=== PATIENT | female | born 1940 | race Caucasian/White ===

== ENCOUNTER 2018-12-02 21:13 | Inpatient (IN) | payer MEDICARE, MEDICAID ==
[~2018-12-02] VITALS: Ht 147.3 cm; Wt 62.0 kg
[~2018-12-02 21:13] MED LIST: LISI10TA4 PO; OMEP-84 PO; SIMV20TA5 PO; VALA500T33 PO
[2018-12-02] MEDS ORDERED: acetaminophen 325mg tablet PO ONE (21:25)
--- NOTE | 2018-12-02 21:30 | NUR ---
Patient complains of nausea and vomiting earlier. Feels weaknes and sleepy now. Being treated for UTI prior to coming to ED. Patients at bedside.
[2018-12-02] MEDS ORDERED: CefTRIAXone 2gm/D5W 50ml 50 ML IV ONE (21:45)
[2018-12-02] MEDS ORDERED: normal saline 1000ML IV soln IV ONE (21:45)
--- NOTE | 2018-12-02 22:00 | NUR ---
Patient is alert and oriented, w/d, fair color. Patient is sleeping. at bedside.
[2018-12-02 23:00] LABS: CLARITY,URINE CLEAR (Clear); COLOR,URINE YELLOW (Yellow); GLUCOSE, URINE NEGATIVE (Neg); KETONES,URINE NEGATIVE (Neg); LEUKOCYTE ESTERASE ,URINE NEGATIVE (Neg); NITRITES, URINE NEGATIVE (Neg); OCCULT BLOOD,URINE NEGATIVE (Neg); PROTEIN,URINE NEGATIVE (Neg); UROBILINOGEN,URINE 0.2 E.U/dL (0.2-1.0)
[2018-12-02 23:13] LABS: BASOPHILS % (AUTO) 0.2 % (0-1); EOSINOPHILS # (AUTO) 0.1 X10'3 (0-0.9); EOSINOPHILS % (AUTO) 0.3 % (0-6); HEMATOCRIT 41.1 % (35.0-45.0); HEMOGLOBIN 13.5 g/dl (12.0-16.0); LYMPHOCYTES # (AUTO) 0.3 X10'3 (1.1-4.8); LYMPHOCYTES % (AUTO) 1.2 % (21-51); MEAN CORPUSCULAR HEMOGLOBIN 30.3 PG (27.0-31.0); MEAN CORPUSCULAR HGB CONC 32.7 g/dL (33.0-36.5); MEAN CORPUSCULAR VOLUME 92.7 FL (78-98); MONOCYTES % (AUTO) 3.8 % (2-12); NEUTROPHILS # (AUTO) 25.4 X10'3 (1.8-7.7); NEUTROPHILS % (AUTO) 94.5 % (42-75); PLATELET COUNT 296 X10'3 (140-440); RED BLOOD COUNT 4.44 X10'6 (4.20-5.60); RED CELL DISTRIBUTION WIDTH 14.5 % (11.5-14.5)
[2018-12-02 23:15] LABS: ALANINE AMINOTRANSFERASE 31 U/L (12-78); ALBUMIN 3.7 G/DL (3.4-5.0); ALBUMIN/GLOBULIN RATIO 1.1 (1.1-1.5); ALKALINE PHOSPHATASE 85 IU/L (46-116); ANION GAP 9 (8-16); ASPARTATE AMINO TRANSFERASE 22 U/L (10-37); BILIRUBIN,TOTAL 0.5 MG/DL (0.1-1.0); BLOOD UREA NITROGEN 16 MG/DL (7-18); BUN/CREATININE RATIO 16.8 (6.6-38.0); CALCIUM 9.5 MG/DL (8.5-10.1); CHLORIDE 105 MMOL/L (99-107); CREATININE 0.95 MG/DL (0.40-0.90); GLUCOSE 155 MG/DL (70-104); POTASSIUM 3.3 MMOL/L (3.5-5.1); SODIUM 141 MMOL/L (135-145); TOTAL CARBON DIOXIDE 26.7 MMOL/L (24-32); TOTAL PROTEIN 7.1 G/DL (6.4-8.2); eGFR 57 ML/MIN
[2018-12-02 23:17] LABS: WHITE BLOOD COUNT 26.9 X10'3 (4.5-11.0)
[2018-12-02 23:19] LABS: UA COLLECTION TYPE VOIDED
[2018-12-02 23:24] LABS: MAGNESIUM 1.5 MG/DL (1.5-2.4); TROPONIN I < 0.04 NG/ML (0.0-0.05)
[2018-12-02 23:55] LABS: PLATELET ESTIMATE NORMAL; TOTAL CELLS COUNTED 100; TOXIC GRANULATION 1+; TOXIC VACUOLATION 3+
[2018-12-03] MEDS ORDERED: ATOR40TA72 PO (00:29)
[2018-12-03] MEDS ORDERED: NITR100C11 PO (00:29)
[2018-12-03] MEDS ORDERED: TRAM50TA2 PO (00:29)
[2018-12-03] MEDS ORDERED: ASPI-1130 PO (00:29)
[2018-12-03] MEDS ORDERED: CLOT30CR TOP (00:29)
[2018-12-03] MEDS ORDERED: traMADol 50MG tablet PO PRN (01:15)
--- NOTE | 2018-12-03 01:21 | NUR ---
Patient is resting. IV antibiotics are done. Awaiting admit.
[2018-12-03] MEDS ORDERED: potassium Cl 20 mEq SR tablet PO PRN (01:25)
[2018-12-03] MEDS ORDERED: ondansetron/PF 4mg/2ml inj IV PRN (01:25)
[2018-12-03] MEDS ORDERED: acetaminophen 325mg tablet PO PRN (01:25)
[2018-12-03] MEDS ORDERED: magnesium 2GM in 50ml NS 50 ML IV PRN (01:25)
[2018-12-03] MEDS ORDERED: magnesium Cl slow-release 64mg tablet PO PRN (01:25)
[2018-12-03] MEDS ORDERED: potassium CL 10mEq/100ml bag 100 ML IV PRN ×2 (01:25)
[2018-12-03] MEDS ORDERED: mag hydrox/Alum hydrox/simeth 30ml oral suspension PO PRN (01:25)
[2018-12-03] MEDS ORDERED: docusate sod 100mg capsule PO PRN (01:25)
[2018-12-03] MEDS ORDERED: magnesium 4gm in 100ml NS 100 ML IV PRN (01:25)
--- NOTE | 2018-12-03 02:19 | NUR ---
Patient is up to bedside commode to voide. Assistance provided by female nurses. The report has been given to GRACIE Roy on surgical floor.
--- NOTE | 2018-12-03 02:39 | NUR ---
Patient transported to surgical floor.
[2018-12-03 02:40] VITALS: BP 120/65
--- NOTE | 2018-12-03 03:00 | NUR ---
0215 I received report from Roberth RN had the opportunity to go over the plan of care and ask questions. Patient arrived via gurney with tech and at her side. She was not in any distress.
[2018-12-03] MEDS: normal saline 1000ml 1,000 ML IV SCH ×3 (03:05→15:05)
[2018-12-03 04:33] LABS: BASOPHILS % (AUTO) 0.1 % (0-1); EOSINOPHILS # (AUTO) 0.3 X10'3 (0-0.9); EOSINOPHILS % (AUTO) 1.1 % (0-6); HEMATOCRIT 41.1 % (35.0-45.0); HEMOGLOBIN 13.2 g/dl (12.0-16.0); LYMPHOCYTES # (AUTO) 0.6 X10'3 (1.1-4.8); LYMPHOCYTES % (AUTO) 2.4 % (21-51); MEAN CORPUSCULAR VOLUME 93.8 FL (78-98); MEAN PLATELET VOLUME 9.9 FL (7.4-10.4); MONOCYTES % (AUTO) 4.1 % (2-12); NEUTROPHILS # (AUTO) 22.5 X10'3 (1.8-7.7); NEUTROPHILS % (AUTO) 92.3 % (42-75); PLATELET COUNT 301 X10'3 (140-440); RED BLOOD COUNT 4.38 X10'6 (4.20-5.60); RED CELL DISTRIBUTION WIDTH 14.7 % (11.5-14.5); WHITE BLOOD COUNT 24.4 X10'3 (4.5-11.0)
--- NOTE | 2018-12-03 06:41 | NUR ---
Patient in room [facility] 349. I have received report from GRACIE Roy and had the opportunity to ask questions and assume patient care.
--- NOTE | 2018-12-03 06:42 | NUR ---
Problems reprioritized. Patient report given, questions answered & plan of care reviewed with Liset BOWMAN.
[2018-12-03 07:00] VITALS: BP 121/50
[2018-12-03] MEDS: K and/or MAG REPLACEMENT MC SCH (08:00)
[2018-12-03] MEDS: valacyclovir 500mg tablet PO SCH (08:00)
[2018-12-03] MEDS: metroNIDAZOLE-Flagyl 500mg/NS 100 ML IV SCH ×3 (08:15→23:44)
[2018-12-03] MEDS ORDERED: iohexol 300mg/ml 100ml inj. ONE (08:18)
[2018-12-03] MEDS: enoxaparin 40mg/0.4ml syringe SUBCUT SCH (08:21)
--- NOTE | 2018-12-03 08:35 | NUR ---
Patient to CT via wheelchair with x1 staff. Patient alert, oriented and in no apparent distress at this time
--- NOTE | 2018-12-03 09:03 | NUR ---
Patient returned from CT scan via wheelchair. Patient in no apparent distress. bedside. BLL, call light in reach.
[2018-12-03] MEDS: aspirin 81mg tablet.DR PO SCH (09:30)
[2018-12-03] MEDS: atorvastatin 20mg tablet PO SCH (09:30)
[2018-12-03] MEDS: pantoprazole 40mg Tablet.DR PO SCH (09:30)
[2018-12-03] MEDS: ciprofloxacin/D5W 200mg/100mL 100 ML IV SCH ×2 (10:40→19:52)
[2018-12-03 11:00] VITALS: BP 123/57
[2018-12-03 14:21] LABS: ALANINE AMINOTRANSFERASE 23 U/L (12-78); ALBUMIN 3.2 G/DL (3.4-5.0); ALKALINE PHOSPHATASE 67 IU/L (46-116); ANION GAP 8 (8-16); ASPARTATE AMINO TRANSFERASE 16 U/L (10-37); BILIRUBIN,TOTAL 0.4 MG/DL (0.1-1.0); BLOOD UREA NITROGEN 11 MG/DL (7-18); BUN/CREATININE RATIO 14.1 (6.6-38.0); CALCIUM 9.2 MG/DL (8.5-10.1); CHLORIDE 108 MMOL/L (99-107); CREATININE 0.78 MG/DL (0.40-0.90); GLUCOSE 84 MG/DL (70-104); POTASSIUM 3.3 MMOL/L (3.5-5.1); SODIUM 144 MMOL/L (135-145); TOTAL CARBON DIOXIDE 28.2 MMOL/L (24-32); TOTAL PROTEIN 6.4 G/DL (6.4-8.2); eGFR 71 ML/MIN
[2018-12-03] MEDS: potassium Cl 20 mEq SR tablet PO PRN ×2 (15:06→19:21)
[2018-12-03 18:00] VITALS: BP 131/66
--- NOTE | 2018-12-03 18:30 | NUR ---
Problems reprioritized. Patient report given, questions answered & plan of care reviewed with GRACIE Roy.
--- NOTE | 2018-12-03 18:48 | NUR ---
Patient in room [facility] 349. I have received report from Liset BOWMAN and had the opportunity to ask questions and assume patient care.
[2018-12-03] MEDS: lactobacillus rhamnosus 10,000 MMU CELLS/CAPSULE PO SCH (19:22)
[2018-12-03] MEDS ORDERED: CefTRIAXone/D5W-Rocephin 1gm 50 ML IV SCH (21:00)
[2018-12-04] VITALS: BP 145/71
[2018-12-04] MEDS: potassium Cl 20 mEq SR tablet PO PRN (00:08)
[2018-12-04] MEDS: normal saline 1000ml 1,000 ML IV SCH (03:46)
--- NOTE | 2018-12-04 06:03 | NUR ---
Problems reprioritized. Patient report given, questions answered & plan of care reviewed with GRACIE Hutchins.
--- NOTE | 2018-12-04 06:05 | NUR ---
Patient in room [facility] 349. I have received report from GRACIE Roy and had the opportunity to ask questions and assume patient care.
[2018-12-04 06:27] LABS: BASOPHILS % (AUTO) 0.3 % (0-1); EOSINOPHILS # (AUTO) 0.5 X10'3 (0-0.9); EOSINOPHILS % (AUTO) 4.6 % (0-6); HEMATOCRIT 36.9 % (35.0-45.0); LYMPHOCYTES # (AUTO) 0.9 X10'3 (1.1-4.8); LYMPHOCYTES % (AUTO) 7.9 % (21-51); MEAN CORPUSCULAR HEMOGLOBIN 30.7 PG (27.0-31.0); MEAN CORPUSCULAR HGB CONC 32.5 g/dL (33.0-36.5); MEAN CORPUSCULAR VOLUME 94.4 FL (78-98); MEAN PLATELET VOLUME 9.6 FL (7.4-10.4); MONOCYTES # (AUTO) 0.8 X10'3 (0-0.9); MONOCYTES % (AUTO) 7.1 % (2-12); NEUTROPHILS # (AUTO) 8.7 X10'3 (1.8-7.7); NEUTROPHILS % (AUTO) 80.1 % (42-75); PLATELET COUNT 254 X10'3 (140-440); RED BLOOD COUNT 3.91 X10'6 (4.20-5.60); RED CELL DISTRIBUTION WIDTH 14.9 % (11.5-14.5); WHITE BLOOD COUNT 10.8 X10'3 (4.5-11.0)
[2018-12-04 07:00] VITALS: BP 123/48
[2018-12-04 07:03] LABS: ALANINE AMINOTRANSFERASE 21 U/L (12-78); ALBUMIN 2.8 G/DL (3.4-5.0); ALKALINE PHOSPHATASE 55 IU/L (46-116); ASPARTATE AMINO TRANSFERASE 16 U/L (10-37); BILIRUBIN,TOTAL 0.4 MG/DL (0.1-1.0); BLOOD UREA NITROGEN 9 MG/DL (7-18); CALCIUM 8.5 MG/DL (8.5-10.1); CHLORIDE 113 MMOL/L (99-107); CHOLESTEROL 91 MG/DL (0-200); CREATININE 0.75 MG/DL (0.40-0.90); GLUCOSE 88 MG/DL (70-104); MAGNESIUM 1.6 MG/DL (1.5-2.4); TOTAL CARBON DIOXIDE 22.2 MMOL/L (24-32); TOTAL PROTEIN 5.7 G/DL (6.4-8.2); eGFR 75 ML/MIN
[2018-12-04 07:04] LABS: CHOL/HDL RATIO 1.9 (0.00-4.99); HDL CHOLESTEROL 48 MG/DL (35-60); LDL CHOLESTEROL 37 MG/DL (50-100); TRIGLYCERIDES 62 MG/DL (20-135)
[2018-12-04 07:17] LABS: ANION GAP 10 (8-16); SODIUM 145 MMOL/L (135-145)
[2018-12-04] MEDS: K and/or MAG REPLACEMENT MC SCH (07:47)
[2018-12-04] MEDS: aspirin 81mg tablet.DR PO SCH (07:50)
[2018-12-04] MEDS: lactobacillus rhamnosus 10,000 MMU CELLS/CAPSULE PO SCH ×2 (07:50→19:37)
[2018-12-04] MEDS: metroNIDAZOLE-Flagyl 500mg/NS 100 ML IV SCH ×2 (07:50→16:40)
[2018-12-04] MEDS: atorvastatin 20mg tablet PO SCH (07:51)
[2018-12-04] MEDS: pantoprazole 40mg Tablet.DR PO SCH (07:51)
[2018-12-04] MEDS: valacyclovir 500mg tablet PO SCH (07:52)
[2018-12-04] MEDS: enoxaparin 40mg/0.4ml syringe SUBCUT SCH (07:52)
[2018-12-04] MEDS: ciprofloxacin/D5W 200mg/100mL 100 ML IV SCH ×2 (09:12→19:37)
[2018-12-04 11:00] VITALS: BP 161/70
[2018-12-04] MEDS ORDERED: benzonatate 100mg capsule PO PRN (12:00)
[2018-12-04 18:00] VITALS: BP 145/77
--- NOTE | 2018-12-04 18:17 | NUR ---
Problems reprioritized. Patient report given, questions answered & plan of care reviewed with GRACIE Roy.
--- NOTE | 2018-12-04 18:20 | NUR ---
Patient in room [facility] 349. I have received report from GRACIE Hutchins and had the opportunity to ask questions and assume patient care.
[2018-12-05] VITALS: BP 163/81
[2018-12-05] MEDS: metroNIDAZOLE-Flagyl 500mg/NS 100 ML IV SCH
--- NOTE | 2018-12-05 01:31 | NUR ---
Patients IV went bad while 0000 flagyl was infusing. I tried once and another RN tried twice with no results. Patient is refusing for us to try anymore for us to place an IV. Dr Dumont notified. I was told to hold put a hold on eMAR on the flagyl. Will notify day tomorrow. Plan is for patient to go home later today.
[2018-12-05 06:19] LABS: BASOPHILS % (AUTO) 0.4 % (0-1); EOSINOPHILS # (AUTO) 0.3 X10'3 (0-0.9); EOSINOPHILS % (AUTO) 3.4 % (0-6); HEMATOCRIT 38.1 % (35.0-45.0); HEMOGLOBIN 12.5 g/dl (12.0-16.0); LYMPHOCYTES # (AUTO) 1.1 X10'3 (1.1-4.8); LYMPHOCYTES % (AUTO) 11.7 % (21-51); MEAN CORPUSCULAR HEMOGLOBIN 30.7 PG (27.0-31.0); MEAN CORPUSCULAR HGB CONC 32.7 g/dL (33.0-36.5); MEAN CORPUSCULAR VOLUME 93.9 FL (78-98); MEAN PLATELET VOLUME 9.7 FL (7.4-10.4); MONOCYTES # (AUTO) 0.7 X10'3 (0-0.9); NEUTROPHILS # (AUTO) 7.2 X10'3 (1.8-7.7); NEUTROPHILS % (AUTO) 76.5 % (42-75); PLATELET COUNT 282 X10'3 (140-440); RED BLOOD COUNT 4.06 X10'6 (4.20-5.60); RED CELL DISTRIBUTION WIDTH 14.8 % (11.5-14.5); WHITE BLOOD COUNT 9.4 X10'3 (4.5-11.0)
[2018-12-05 06:40] LABS: ALANINE AMINOTRANSFERASE 24 U/L (12-78); ALBUMIN 3.1 G/DL (3.4-5.0); ALKALINE PHOSPHATASE 60 IU/L (46-116); ANION GAP 11 (8-16); ASPARTATE AMINO TRANSFERASE 13 U/L (10-37); BILIRUBIN,TOTAL 0.3 MG/DL (0.1-1.0); BLOOD UREA NITROGEN 8 MG/DL (7-18); CALCIUM 8.9 MG/DL (8.5-10.1); CHLORIDE 110 MMOL/L (99-107); CREATININE 0.73 MG/DL (0.40-0.90); GLUCOSE 106 MG/DL (70-104); MAGNESIUM 1.5 MG/DL (1.5-2.4); POTASSIUM 3.7 MMOL/L (3.5-5.1); SODIUM 146 MMOL/L (135-145); TOTAL CARBON DIOXIDE 25.1 MMOL/L (24-32); TOTAL PROTEIN 6.2 G/DL (6.4-8.2); eGFR 77 ML/MIN
[2018-12-05 07:18] VITALS: BP 138/65
[2018-12-05] MEDS: atorvastatin 20mg tablet PO SCH (08:29)
[2018-12-05] MEDS: valacyclovir 500mg tablet PO SCH (08:29)
[2018-12-05] MEDS: lactobacillus rhamnosus 10,000 MMU CELLS/CAPSULE PO SCH (08:29)
[2018-12-05] MEDS: aspirin 81mg tablet.DR PO SCH (08:30)
[2018-12-05] MEDS: pantoprazole 40mg Tablet.DR PO SCH (08:30)
[2018-12-05] MEDS: enoxaparin 40mg/0.4ml syringe SUBCUT SCH (08:30)
--- NOTE | 2018-12-05 09:14 | NUR ---
Patient in room [facility] 358. I have received report from ALEX BOWMAN and had the opportunity to ask questions and assume patient care.
[2018-12-05 11:00] VITALS: BP 173/86
[2018-12-05] MEDS ORDERED: ciprofloxacin 250mg tablet PO SCH (11:15)
[2018-12-05] MEDS ORDERED: metroNIDAZOLE 500mg tablet PO SCH (11:16)
[2018-12-05] MEDS ORDERED: METR-159 PO (11:25)
[2018-12-05] MEDS ORDERED: CIPR-230 PO (11:25)
[2018-12-05 11:44] LABS: C DIFF ANTIGEN NEGATIVE (NEGATIVE); C DIFF SPECIMEN=DIARRHEA? ACCEPTABLE; C DIFFICILE TOXINS A&B NEGATIVE (Neg)
== END 2018-12-05 15:21 | disposition home or self-care (01) | DRG 872 ==
LOC: ER 21:13 → SUR 3N 12-03 02:45 → CMPBEDREQ 12-03 03:27 → SUR 3N 12-04 21:00
PROVIDERS: ADMIT Family Medicine; ATTEND Family Medicine
PROC: BW211ZZ Computerized Tomography (CT Scan) of Abdomen and Pelvis using Low Osmolar Contrast (ICD-10-PCS; principal; 2018-12-03)
DX: A41.9 Sepsis, unspecified organism (principal); K57.92 Diverticulitis of intestine, part unspecified, without perforation or abscess without bleeding; R65.20 Severe sepsis without septic shock; E78.00 Pure hypercholesterolemia, unspecified; E78.5 Hyperlipidemia, unspecified; I10 Essential (primary) hypertension; G89.29 Other chronic pain; Z96.653 Presence of artificial knee joint, bilateral; E87.6 Hypokalemia; K21.9 Gastro-esophageal reflux disease without esophagitis; Z87.440 Personal history of urinary (tract) infections; Z82.49 Family history of ischemic heart disease and other diseases of the circulatory system; Z90.49 Acquired absence of other specified parts of digestive tract; Z90.710 Acquired absence of both cervix and uterus; Z90.721 Acquired absence of ovaries, unilateral; Z88.0 Allergy status to penicillin; Z88.5 Allergy status to narcotic agent; Z79.899 Other long term (current) drug therapy; Z79.82 Long term (current) use of aspirin; Z80.9 Family history of malignant neoplasm, unspecified
CPT/HCPCS: 36415; 71045; 74177; 80053; 80061; 81003; 83605; 83735; 84145; 84439; 84443; 84484; 85025; 87040; 87081; 87324; 87449; 92508; 92616; 93005; 96365; 97110; 97116; 97161; 97530; 99285; G0378; J0696; J0744; J1650; J2405; J3490; J7030; Q9967

== ENCOUNTER 2019-02-10 06:04 | Inpatient (IN) | payer MEDICARE, MEDICAID ==
[2019-02-04 11:28] LABS: BASOPHILS # (AUTO) 0.1 X10'3 (0-0.2); BASOPHILS % (AUTO) 0.6 % (0-1); EOSINOPHILS # (AUTO) 0.2 X10'3 (0-0.9); EOSINOPHILS % (AUTO) 1.3 % (0-6); LYMPHOCYTES # (AUTO) 1.8 X10'3 (1.1-4.8); LYMPHOCYTES % (AUTO) 14.7 % (21-51); MEAN CORPUSCULAR HEMOGLOBIN 29.6 PG (27.0-31.0); MEAN CORPUSCULAR HGB CONC 32.2 g/dL (33.0-36.5); MEAN CORPUSCULAR VOLUME 91.8 FL (78-98); MEAN PLATELET VOLUME 10.2 FL (7.4-10.4); MONOCYTES # (AUTO) 0.8 X10'3 (0-0.9); MONOCYTES % (AUTO) 6.8 % (2-12); NEUTROPHILS # (AUTO) 9.5 X10'3 (1.8-7.7); NEUTROPHILS % (AUTO) 76.6 % (42-75); PRE OP HEMATOCRIT 41.3 % (35.0-45.0); PRE OP HEMOGLOBIN 13.3 g/dL (12.0-16.0); PRE OP PLATELET COUNT 334 X10'3 (140-440); RED CELL DISTRIBUTION WIDTH 14.7 % (11.5-14.5)
[2019-02-04 11:31] LABS: CLARITY,URINE SLIGHTLY CLOUDY (Clear); COLOR,URINE YELLOW (Yellow); GLUCOSE, URINE NEGATIVE (Neg); KETONES,URINE NEGATIVE (Neg); LEUKOCYTE ESTERASE ,URINE NEGATIVE (Neg); NITRITES, URINE NEGATIVE (Neg); OCCULT BLOOD,URINE NEGATIVE (Neg); PROTEIN,URINE NEGATIVE (Neg); UA COLLECTION TYPE CLN CATCH MIDSTREAM; UROBILINOGEN,URINE 0.2 E.U/dL (0.2-1.0)
[2019-02-04 11:36] LABS: PRE OP PROTIME 10.3 SECONDS (9.0-12.0)
[2019-02-04 11:47] LABS: ALBUMIN 3.5 G/DL (3.4-5.0); ALBUMIN/GLOBULIN RATIO 1.1 (1.1-1.5); ALKALINE PHOSPHATASE 89 IU/L (46-116); BLOOD UREA NITROGEN 15 MG/DL (7-18); BUN/CREATININE RATIO 22.1 (6.6-38.0); CALCIUM 8.9 MG/DL (8.5-10.1); CHLORIDE 110 MMOL/L (99-107); CREATININE 0.68 MG/DL (0.40-0.90); PRE OP ALT 35 U/L (30-65); PRE OP ANION GAP 12 (8-16); PRE OP AST 22 U/L (10-37); PRE OP BILIRUB, TOTAL 0.4 MG/DL (0.0-1.0); PRE OP GLUCOSE 113 MG/DL (70-104); PRE OP POTASSIUM 4.1 MMOL/L (3.4-5.1); PRE OP SODIUM 145 MMOL/L (135-145); TOTAL CARBON DIOXIDE 23.5 MMOL/L (24-32); TOTAL PROTEIN 6.7 G/DL (6.4-8.2); eGFR 83 ML/MIN
[2019-02-04 11:50] LABS: BACTERIA,URINE FEW /HPF (Neg); CAL OXALATE CRYSTALS 4+ /HPF (NEGATIVE); MUCUS STRANDS MODERATE /LPF (Neg); RBC,URINE NONE SEEN /HPF (0-2); SQUAMOUS EPITHELIAL CELL,UR FEW /LPF (FEW); WBC,URINE 0-4 /HPF (0-4)
[2019-02-10] VITALS (28 sets, daily range): BP systolic 131–218; BP diastolic 61–118
[~2019-02-10] VITALS: Ht 144.8 cm; Wt 62.0 kg
[~2019-02-10 06:04] MED LIST changes: +ASPI-1130 PO; +ATOR40TA72 PO; -LISI10TA4 PO; -SIMV20TA5 PO; +TRAM50TA2 PO
[2019-02-10] MEDS ORDERED: phenylephrine inj 20 MG in normal saline 250ml IV soln 250 ML IV PRN (06:48)
[2019-02-10] MEDS ORDERED: nitroPRUSSIDE in NS 100 ML IV PRN (06:48)
[2019-02-10] MEDS ORDERED: LIDOcaine 1% (10mg/ml) 2ml vial ONE ×2 (07:02→07:15)
[2019-02-10] MEDS ORDERED: heparin 10,000 units/1 ML INJ ONE (07:15)
[2019-02-10] MEDS ORDERED: famotidine 20mg tablet PO ONE (08:00)
[2019-02-10] MEDS ORDERED: cefazolin/dext.iso 2gm/50ml 50 ML IV ONE (08:00)
[2019-02-10] MEDS: ringers solution, lacted 1,000 ML IV SCH (08:35)
[2019-02-10] MEDS ORDERED: neostigmine in sterile water inj 5 MG/5 ML syringe IJ ONE (11:06)
[2019-02-10] MEDS ORDERED: midazolam 2 mg/2 ml injection ONE (11:06)
[2019-02-10] MEDS ORDERED: nitroPRUSSIDE 20mg/NS 100mL (0.2mg/mL) VIAL IV ONE (11:06)
[2019-02-10] MEDS ORDERED: fentaNYL/PF 50MCG/1 ML 2ML syringe ONE (11:06)
[2019-02-10] MEDS ORDERED: sevoflurane 250ml liquid IH ONE (11:06)
[2019-02-10] MEDS ORDERED: propofol inj 20 ML IV ONE (11:10)
[2019-02-10] MEDS ORDERED: rocuronium 10mg/ml inj IV ONE (11:10)
[2019-02-10] MEDS ORDERED: heparin 1,000unit/ml 10ml vial 10 ML ONE (11:30)
[2019-02-10] MEDS ORDERED: ringers solution, lacted 1,000 ML IV SCH (11:53)
[2019-02-10] MEDS ORDERED: HYDROmorphone inj. 0.5 MG/0.5 ML DISP.SYRIN IV PRN ×2 (11:55)
[2019-02-10] MEDS ORDERED: meperidine/PF 25mg/ml syringe IV PRN ×2 (11:55)
[2019-02-10] MEDS ORDERED: ondansetron/PF 4mg/2ml inj IV PRN (11:55)
[2019-02-10] MEDS ORDERED: sugammadex 200mg/2ml injection IV ONE (12:47)
[2019-02-10] MEDS ORDERED: neostigmine methylsulfate 1 MG/ML 10ml vial ONE (12:51)
--- NOTE | 2019-02-10 12:53 | NUR ---
Received from OR via BED, accompanied by Anesthesiologist DR EDGE and report given by Anesthesiologist. PT RESTLESS, CRYING, REORIENTS, FOLLOWS COMMANDS, NEURO CHECKS INTACT. PT W/MAHESH DRSG TO LEFT NECK CDI, SIMBA W/SANGUINOUS DRAINAGE TO BULB SUCTION, HAQUE CATHETER TO GRAVITY DRAINAGE. Addendum: 02/10/19 at 1327 by Agatha Kenney RN Amended: Links added.
[2019-02-10] MEDS: meperidine/PF 25mg/ml syringe IV PRN ×2 (13:03→13:09)
[2019-02-10] MEDS ORDERED: ondansetron/PF 4mg/2ml inj IV ONE (13:15)
[2019-02-10] MEDS ORDERED: proCHLORperazine 10 MG/2 ml inj IV ONE (13:15)
[2019-02-10] MEDS ORDERED: ondansetron/PF 4mg/2ml inj ONE (13:18)
--- NOTE | 2019-02-10 14:33 | NUR ---
PT INCONTINENT W/STOOL, CLEANED, ANNETTA CARE PROVIDED. Report called to receiving nurse. Transferred via BED, ON AND , NO Belongings, RECEIVING RN AT BEDSIDE TO RECEIVE PT. . Special Issues communicated to receiving nurse. YES. Addendum: 02/10/19 at 1456 by Agatha Kenney RN Amended: Links added.
--- NOTE | 2019-02-10 14:45 | NUR ---
Received from recovery room
[2019-02-10] MEDS: morphine 4 MG/ML inj SYRINge IV PRN ×3 (14:57→22:58)
[2019-02-10] MEDS ORDERED: HYDROmorphone 1 mg/ml syringe ONE (15:40)
[2019-02-10] MEDS: nitroPRUSSIDE in NS 100 ML IV PRN ×4 (15:49→22:31)
--- NOTE | 2019-02-10 18:15 | NUR ---
Problems reprioritized. Patient report given, questions answered & plan of care reviewed with oncoming shift.
--- NOTE | 2019-02-10 18:30 | NUR ---
received report from Ana BOWMAN , awake , follow commands , complained of incisional pain but claimed tolerable , had large BM all over the bed , BP up on Nipride drip , still nauseated
[2019-02-10] MEDS: ondansetron/PF 4mg/2ml inj IV PRN (22:58)
[2019-02-11] VITALS (24 sets, daily range): BP systolic 135–196; BP diastolic 57–98
[2019-02-11] MEDS: nitroPRUSSIDE in NS 100 ML IV PRN ×7 (01:05→12:06)
[2019-02-11 02:59] LABS: BASOPHILS # (AUTO) 0.1 X10'3 (0-0.2); BASOPHILS % (AUTO) 0.2 % (0-1); EOSINOPHILS % (AUTO) 0 % (0-6); HEMATOCRIT 34.9 % (35.0-45.0); HEMOGLOBIN 11.4 g/dl (12.0-16.0); LYMPHOCYTES # (AUTO) 1.6 X10'3 (1.1-4.8); LYMPHOCYTES % (AUTO) 6.7 % (21-51); MEAN CORPUSCULAR HEMOGLOBIN 29.9 PG (27.0-31.0); MEAN CORPUSCULAR HGB CONC 32.7 g/dL (33.0-36.5); MEAN CORPUSCULAR VOLUME 91.4 FL (78-98); MEAN PLATELET VOLUME 9.4 FL (7.4-10.4); MONOCYTES # (AUTO) 1.3 X10'3 (0-0.9); MONOCYTES % (AUTO) 5.5 % (2-12); NEUTROPHILS # (AUTO) 20.8 X10'3 (1.8-7.7); NEUTROPHILS % (AUTO) 87.6 % (42-75); PLATELET COUNT 289 X10'3 (140-440); RED BLOOD COUNT 3.82 X10'6 (4.20-5.60); RED CELL DISTRIBUTION WIDTH 14.7 % (11.5-14.5); WHITE BLOOD COUNT 23.7 X10'3 (4.5-11.0)
[2019-02-11 03:11] LABS: ALANINE AMINOTRANSFERASE 40 U/L (12-78); ALBUMIN 3.3 G/DL (3.4-5.0); ALKALINE PHOSPHATASE 78 IU/L (46-116); ANION GAP 7 (8-16); ASPARTATE AMINO TRANSFERASE 24 U/L (10-37); BILIRUBIN,TOTAL 0.5 MG/DL (0.1-1.0); BLOOD UREA NITROGEN 9 MG/DL (7-18); CALCIUM 8.9 MG/DL (8.5-10.1); CHLORIDE 103 MMOL/L (99-107); CREATININE 0.75 MG/DL (0.40-0.90); GLUCOSE 130 MG/DL (70-104); POTASSIUM 3.6 MMOL/L (3.5-5.1); SODIUM 139 MMOL/L (135-145); TOTAL CARBON DIOXIDE 28.7 MMOL/L (24-32); TOTAL PROTEIN 6.5 G/DL (6.4-8.2); eGFR 75 ML/MIN
--- NOTE | 2019-02-11 06:30 | NUR ---
Patient in room CICU 2006. I have received report from Esha BOWMAN and had the opportunity to ask questions and assume patient care.
[2019-02-11] MEDS: ondansetron/PF 4mg/2ml inj IV PRN ×2 (07:05→12:44)
[2019-02-11] MEDS ORDERED: SIMV40TA PO (12:17)
[2019-02-11] MEDS: hydrALAZINE 20mg/ml inj. IV PRN ×3 (12:59→21:55)
[2019-02-11] MEDS: traMADol 50MG tablet PO PRN ×2 (14:25→21:56)
--- NOTE | 2019-02-11 14:32 | NUR ---
Right wrist Art Line D/C'd due to patient being unable to hold still in the bed and pulling on line frequently. Cannula intact, patient tolerated well, no abnormal s/s of bleeding at the site, pressure held for 10 minutes then coban placed. No longer on Nipridel; now using Hydralazine pushes.
--- NOTE | 2019-02-11 16:51 | NUR ---
rees catheter removed; pt tolerated well. will continue to monitor.
[2019-02-11] MEDS: ringers solution, lacted 1,000 ML IV SCH (16:55)
[2019-02-12] VITALS (24 sets, daily range): BP systolic 106–171; BP diastolic 56–89
--- NOTE | 2019-02-12 06:27 | NUR ---
Patient in room CICU 2006. I have received report from Azra BOWMAN and had the opportunity to ask questions and assume patient care.
[2019-02-12] MEDS: valacyclovir 500mg tablet PO SCH (07:03)
[2019-02-12] MEDS: atorvastatin 20mg tablet PO SCH (07:04)
[2019-02-12] MEDS: pantoprazole 40mg Tablet.DR PO SCH (07:05)
[2019-02-12] MEDS: ondansetron/PF 4mg/2ml inj IV PRN (07:10)
[2019-02-12] MEDS: traMADol 50MG tablet PO PRN (07:35)
[2019-02-12] MEDS: aspirin 81mg tablet.DR PO SCH (07:36)
[2019-02-12] MEDS ORDERED: non-formulary drug (Omeprazole* (Prilosec*) 1 CAP) PO SCH (08:00)
[2019-02-12] MEDS: lisinopril 5mg tablet PO SCH (11:07)
--- NOTE | 2019-02-12 13:11 | NUR ---
SIMBA Drain D/C'd, patient tolerated well, no abnormal s/s of bleeding noted at the site.
[2019-02-13] VITALS (17 sets, daily range): BP systolic 100–175; BP diastolic 46–81
[2019-02-13] MEDS: ondansetron/PF 4mg/2ml inj IV PRN (04:42)
[2019-02-13] MEDS: traMADol 50MG tablet PO PRN (04:42)
[2019-02-13 05:34] LABS: BASOPHILS % (AUTO) 0.2 % (0-1); EOSINOPHILS # (AUTO) 0.1 X10'3 (0-0.9); EOSINOPHILS % (AUTO) 0.5 % (0-6); HEMATOCRIT 38.2 % (35.0-45.0); HEMOGLOBIN 12.5 g/dl (12.0-16.0); LYMPHOCYTES # (AUTO) 1.1 X10'3 (1.1-4.8); LYMPHOCYTES % (AUTO) 7.7 % (21-51); MEAN CORPUSCULAR HEMOGLOBIN 30.2 PG (27.0-31.0); MEAN CORPUSCULAR HGB CONC 32.8 g/dL (33.0-36.5); MEAN CORPUSCULAR VOLUME 92.2 FL (78-98); MEAN PLATELET VOLUME 9.8 FL (7.4-10.4); MONOCYTES # (AUTO) 1.2 X10'3 (0-0.9); MONOCYTES % (AUTO) 8.7 % (2-12); NEUTROPHILS # (AUTO) 11.3 X10'3 (1.8-7.7); NEUTROPHILS % (AUTO) 82.9 % (42-75); PLATELET COUNT 291 X10'3 (140-440); RED BLOOD COUNT 4.14 X10'6 (4.20-5.60); RED CELL DISTRIBUTION WIDTH 15.2 % (11.5-14.5); WHITE BLOOD COUNT 13.6 X10'3 (4.5-11.0)
[2019-02-13 05:59] LABS: ALBUMIN 3.4 G/DL (3.4-5.0); ANION GAP 9 (8-16); BLOOD UREA NITROGEN 18 MG/DL (7-18); BUN/CREATININE RATIO 21.7 (6.6-38.0); CALCIUM 9.1 MG/DL (8.5-10.1); CHLORIDE 101 MMOL/L (99-107); CREATININE 0.83 MG/DL (0.40-0.90); GLUCOSE 102 MG/DL (70-104); POTASSIUM 3.1 MMOL/L (3.5-5.1); SODIUM 142 MMOL/L (135-145); eGFR 66 ML/MIN
--- NOTE | 2019-02-13 07:01 | NUR ---
RN Note -Shift Summary Pt was occasionally confused throughout the night, but was able to get assistance to use commode and was not incontinent.
[2019-02-13] MEDS: atorvastatin 20mg tablet PO SCH (07:43)
[2019-02-13] MEDS: valacyclovir 500mg tablet PO SCH (07:43)
[2019-02-13] MEDS: aspirin 81mg tablet.DR PO SCH (07:43)
[2019-02-13] MEDS: lisinopril 5mg tablet PO SCH (07:44)
[2019-02-13] MEDS: pantoprazole 40mg Tablet.DR PO SCH (07:44)
--- NOTE | 2019-02-13 16:00 | NUR ---
Report given to Maxherman Perez: Pt. is transferred via gurney. is in route to met her on arrival. Pt. is stable and vital sign are stable. No nausea. Eating without difficulties. No vertigo or confusion noted. IV and monitoring are discontinued. Surgical wound dressing is intact and her is instructed to call Dr. Kelly on Friday to schedule a port op appointment.
== END 2019-02-13 16:15 | DRG 38 ==
LOC: PAS IN 06:04 → EDSTATUS 08:45 → CICU 2S 13:48
PROVIDERS: ADMIT Surgery; ATTEND Surgery
PROC: 03CN0ZZ Extirpation of Matter from Left External Carotid Artery, Open Approach (ICD-10-PCS; 2019-02-10)
PROC: 03UN0KZ Supplement Left External Carotid Artery with Nonautologous Tissue Substitute, Open Approach (ICD-10-PCS; 2019-02-10)
PROC: 03UL0KZ Supplement Left Internal Carotid Artery with Nonautologous Tissue Substitute, Open Approach (ICD-10-PCS; 2019-02-10)
PROC: 03CL0ZZ Extirpation of Matter from Left Internal Carotid Artery, Open Approach (ICD-10-PCS; principal; 2019-02-10 11:06)
DX: I65.22 Occlusion and stenosis of left carotid artery (principal); R65.10 Systemic inflammatory response syndrome (SIRS) of non-infectious origin without acute organ dysfunction; E78.5 Hyperlipidemia, unspecified; F17.210 Nicotine dependence, cigarettes, uncomplicated; I10 Essential (primary) hypertension; K21.9 Gastro-esophageal reflux disease without esophagitis; M19.90 Unspecified osteoarthritis, unspecified site; Z96.651 Presence of right artificial knee joint; I08.2 Rheumatic disorders of both aortic and tricuspid valves; Z80.9 Family history of malignant neoplasm, unspecified; Z88.0 Allergy status to penicillin; Z88.6 Allergy status to analgesic agent; Z82.49 Family history of ischemic heart disease and other diseases of the circulatory system; Z90.49 Acquired absence of other specified parts of digestive tract; Z90.710 Acquired absence of both cervix and uterus; Z86.73 Personal history of transient ischemic attack (TIA), and cerebral infarction without residual deficits; Z85.42 Personal history of malignant neoplasm of other parts of uterus; Z92.3 Personal history of irradiation
CPT/HCPCS: 36415; 80048; 80053; 81001; 82948; 85025; 85610; 85730; 86885; 86900; 86901; 87081; 95813; 95816; A4338; A4618; A6258; A6449; A7000; C1768; C9399; G0378; J0360; J0780; J1170; J1644; J2001; J2175; J2250; J2270; J2370; J2405; J2704; J2710; J3010; J7040; J7050; J7120

== ENCOUNTER 2019-03-23 17:19 | Emergency (ER) | payer MEDICARE, MEDICAID ==
[~2019-03-23] VITALS: Ht 147.3 cm; Wt 61.0 kg
[~2019-03-23 17:19] MED LIST changes: -ATOR40TA72 PO; +SIMV40TA PO
[2019-03-23 19:23] LABS: CLARITY,URINE SLIGHTLY CLOUDY (Clear); COLOR,URINE YELLOW (Yellow); GLUCOSE, URINE NEGATIVE (Neg); KETONES,URINE NEGATIVE (Neg); LEUKOCYTE ESTERASE ,URINE TRACE (Neg); NITRITES, URINE NEGATIVE (Neg); OCCULT BLOOD,URINE NEGATIVE (Neg); PH,URINE 6.5 (4.8-8.0); PROTEIN,URINE NEGATIVE (Neg); UROBILINOGEN,URINE 0.2 E.U/dL (0.2-1.0)
[2019-03-23 19:29] LABS: UA COLLECTION TYPE VOIDED
[2019-03-23 19:37] LABS: BACTERIA,URINE FEW /HPF (Neg); RBC,URINE 0-2 /HPF (0-2); SQUAMOUS EPITHELIAL CELL,UR FEW /LPF (FEW)
[2019-03-23 20:04] LABS: BASOPHILS # (AUTO) 0.1 X10'3 (0-0.2); BASOPHILS % (AUTO) 0.8 % (0-1); EOSINOPHILS # (AUTO) 0.3 X10'3 (0-0.9); EOSINOPHILS % (AUTO) 2.5 % (0-6); HEMATOCRIT 38.5 % (35.0-45.0); HEMOGLOBIN 12.6 g/dl (12.0-16.0); LYMPHOCYTES # (AUTO) 1.6 X10'3 (1.1-4.8); LYMPHOCYTES % (AUTO) 15.7 % (21-51); MEAN CORPUSCULAR HEMOGLOBIN 30.1 PG (27.0-31.0); MEAN CORPUSCULAR HGB CONC 32.8 g/dL (33.0-36.5); MEAN CORPUSCULAR VOLUME 91.9 FL (78-98); MONOCYTES # (AUTO) 1.2 X10'3 (0-0.9); MONOCYTES % (AUTO) 12.2 % (2-12); NEUTROPHILS % (AUTO) 68.8 % (42-75); PLATELET COUNT 327 X10'3 (140-440); RED BLOOD COUNT 4.19 X10'6 (4.20-5.60); RED CELL DISTRIBUTION WIDTH 15.1 % (11.5-14.5); WHITE BLOOD COUNT 10.1 X10'3 (4.5-11.0)
[2019-03-23 20:18] LABS: ALANINE AMINOTRANSFERASE 152 U/L (12-78); ALBUMIN 3.4 G/DL (3.4-5.0); ALBUMIN/GLOBULIN RATIO 0.9 (1.1-1.5); ALKALINE PHOSPHATASE 468 IU/L (46-116); ANION GAP 10 (8-16); ASPARTATE AMINO TRANSFERASE 116 U/L (10-37); BILIRUBIN,TOTAL 0.6 MG/DL (0.1-1.0); BLOOD UREA NITROGEN 15 MG/DL (7-18); BUN/CREATININE RATIO 21.4 (6.6-38.0); CALCIUM 9.2 MG/DL (8.5-10.1); CHLORIDE 105 MMOL/L (99-107); CREATINE KINASE 54 U/L (26-192); GLUCOSE 94 MG/DL (70-104); POTASSIUM 3.3 MMOL/L (3.5-5.1); SODIUM 141 MMOL/L (135-145); TOTAL CARBON DIOXIDE 26.2 MMOL/L (24-32); TOTAL PROTEIN 7.4 G/DL (6.4-8.2); eGFR 81 ML/MIN
[2019-03-23] MEDS ORDERED: ATOR-2 PO (22:29)
[2019-03-23] MEDS ORDERED: OMEP-50 PO (22:29)
--- NOTE | 2019-03-23 22:37 | NUR ---
Patient is pending admit, Andrew RN is starting an IV
[2019-03-24 02:29] VITALS: BP 181/113
== END 2019-03-24 00:20 | disposition home or self-care (01) ==
LOC: ER 17:19
DX: R11.10 Vomiting, unspecified (principal); T46.6X5A Adverse effect of antihyperlipidemic and antiarteriosclerotic drugs, initial encounter; E78.00 Pure hypercholesterolemia, unspecified; I10 Essential (primary) hypertension; K21.9 Gastro-esophageal reflux disease without esophagitis; G89.29 Other chronic pain; Z90.49 Acquired absence of other specified parts of digestive tract; Z90.710 Acquired absence of both cervix and uterus; Z98.890 Other specified postprocedural states; Z88.0 Allergy status to penicillin; Z88.5 Allergy status to narcotic agent; Z79.82 Long term (current) use of aspirin; Z79.899 Other long term (current) drug therapy; Y92.89 Other specified places as the place of occurrence of the external cause
CPT/HCPCS: 36415; 74176; 80053; 81001; 82550; 85025; 87088; 99285

== ENCOUNTER 2019-04-05 12:29 | Emergency (ER) | payer MEDICARE, MEDICAID ==
[~2019-04-05] VITALS: Ht 147.3 cm; Wt 62.3 kg
[~2019-04-05 12:29] MED LIST changes: +ATOR-2 PO; +OMEP-50 PO; -OMEP-84 PO; -SIMV40TA PO
[2019-04-05] MEDS ORDERED: normal saline 1000ML IV soln IVB ONE (13:10)
[2019-04-05] MEDS ORDERED: meclizine 12.5mg tablet PO ONE (13:10)
[2019-04-05 13:28] LABS: BASOPHILS # (AUTO) 0.1 X10'3 (0-0.2); BASOPHILS % (AUTO) 0.6 % (0-1); EOSINOPHILS # (AUTO) 0.2 X10'3 (0-0.9); EOSINOPHILS % (AUTO) 1.7 % (0-6); HEMATOCRIT 38.9 % (35.0-45.0); HEMOGLOBIN 12.6 g/dl (12.0-16.0); LYMPHOCYTES # (AUTO) 1.4 X10'3 (1.1-4.8); LYMPHOCYTES % (AUTO) 15.2 % (21-51); MEAN CORPUSCULAR HGB CONC 32.4 g/dL (33.0-36.5); MEAN CORPUSCULAR VOLUME 92.6 FL (78-98); MEAN PLATELET VOLUME 9.6 FL (7.4-10.4); MONOCYTES # (AUTO) 0.8 X10'3 (0-0.9); MONOCYTES % (AUTO) 8.4 % (2-12); NEUTROPHILS # (AUTO) 6.7 X10'3 (1.8-7.7); NEUTROPHILS % (AUTO) 74.1 % (42-75); PLATELET COUNT 341 X10'3 (140-440); RED BLOOD COUNT 4.21 X10'6 (4.20-5.60); RED CELL DISTRIBUTION WIDTH 15.1 % (11.5-14.5); WHITE BLOOD COUNT 9.1 X10'3 (4.5-11.0)
[2019-04-05 13:46] LABS: ALANINE AMINOTRANSFERASE 40 U/L (12-78); ALBUMIN 3.7 G/DL (3.4-5.0); ALKALINE PHOSPHATASE 273 IU/L (46-116); ANION GAP 8 (8-16); ASPARTATE AMINO TRANSFERASE 25 U/L (10-37); BILIRUBIN,TOTAL 0.3 MG/DL (0.1-1.0); BLOOD UREA NITROGEN 18 MG/DL (7-18); BUN/CREATININE RATIO 22.5 (6.6-38.0); CALCIUM 8.7 MG/DL (8.5-10.1); CHLORIDE 106 MMOL/L (99-107); GLUCOSE 96 MG/DL (70-104); POTASSIUM 3.5 MMOL/L (3.5-5.1); SODIUM 142 MMOL/L (135-145); TOTAL CARBON DIOXIDE 28.1 MMOL/L (24-32); TOTAL PROTEIN 7.4 G/DL (6.4-8.2); eGFR 69 ML/MIN
--- NOTE | 2019-04-05 14:31 | NUR ---
FRANCIS WILDER AWARE OF BP
[2019-04-05] MEDS ORDERED: MECL12.584 PO (15:02)
[2019-04-05 18:15] VITALS: BP 168/81
== END 2019-04-05 16:33 | disposition home or self-care (01) ==
LOC: ER 12:30
DX: R42 Dizziness and giddiness (principal); E78.00 Pure hypercholesterolemia, unspecified; I10 Essential (primary) hypertension; K21.9 Gastro-esophageal reflux disease without esophagitis; G89.29 Other chronic pain; Z90.49 Acquired absence of other specified parts of digestive tract; Z98.890 Other specified postprocedural states; Z88.0 Allergy status to penicillin; Z88.8 Allergy status to other drugs, medicaments and biological substances; Z88.5 Allergy status to narcotic agent; Z79.82 Long term (current) use of aspirin; Z79.899 Other long term (current) drug therapy
CPT/HCPCS: 36415; 80053; 84484; 85025; 93005; 96360; 99284; J7030; J8597

== ENCOUNTER 2019-11-28 06:36 | Inpatient (IN) | payer MEDICARE, MEDICAID ==
[~2019-11-28] VITALS: Ht 147.3 cm; Wt 63.6 kg
[~2019-11-28 06:36] MED LIST changes: -ATOR-2 PO; +MECL-184 PO
[2019-11-28 07:47] LABS: BASOPHILS % (AUTO) 0.6 % (0-1); EOSINOPHILS # (AUTO) 0.1 X10'3 (0-0.9); EOSINOPHILS % (AUTO) 1.4 % (0-6); HEMATOCRIT 39.4 % (35.0-45.0); HEMOGLOBIN 12.6 g/dl (12.0-16.0); LYMPHOCYTES # (AUTO) 1.3 X10'3 (1.1-4.8); LYMPHOCYTES % (AUTO) 17.9 % (21-51); MEAN CORPUSCULAR HEMOGLOBIN 28.8 PG (27.0-31.0); MEAN CORPUSCULAR HGB CONC 32.1 g/dL (33.0-36.5); MEAN CORPUSCULAR VOLUME 89.7 FL (78-98); MEAN PLATELET VOLUME 9.7 FL (7.4-10.4); MONOCYTES # (AUTO) 0.6 X10'3 (0-0.9); NEUTROPHILS # (AUTO) 5.4 X10'3 (1.8-7.7); NEUTROPHILS % (AUTO) 72.1 % (42-75); PLATELET COUNT 313 X10'3 (140-440); RED BLOOD COUNT 4.39 X10'6 (4.20-5.60); RED CELL DISTRIBUTION WIDTH 16.3 % (11.5-14.5); WHITE BLOOD COUNT 7.5 X10'3 (4.5-11.0)
[2019-11-28 07:48] LABS: PARTIAL THROMBOPLASTIN TIME 25 SECONDS (22-32)
[2019-11-28 07:49] LABS: ALANINE AMINOTRANSFERASE 23 U/L (12-78); ALBUMIN 3.1 G/DL (3.4-5.0); ALBUMIN/GLOBULIN RATIO 0.8 (1.1-1.5); ALKALINE PHOSPHATASE 81 IU/L (46-116); ANION GAP 6 (8-16); ASPARTATE AMINO TRANSFERASE 17 U/L (10-37); BILIRUBIN,TOTAL 0.4 MG/DL (0.1-1.0); BLOOD UREA NITROGEN 16 MG/DL (7-18); BUN/CREATININE RATIO 18.2 (6.6-38.0); CALCIUM 8.4 MG/DL (8.5-10.1); CHLORIDE 108 MMOL/L (99-107); CREATININE 0.88 MG/DL (0.40-0.90); GLUCOSE 102 MG/DL (70-104); POTASSIUM 4.1 MMOL/L (3.5-5.1); SODIUM 142 MMOL/L (135-145); TOTAL CARBON DIOXIDE 28.2 MMOL/L (24-32); TOTAL PROTEIN 6.9 G/DL (6.4-8.2); eGFR 62 ML/MIN
[2019-11-28] MEDS ORDERED: aspirin 81mg tab.chew PO ONE (08:10)
--- NOTE | 2019-11-28 08:10 | NUR ---
TC FROM FRIEND, SERAFIN MCDOWELL [phone] FOR CONDITION REPORT. STATES HE WILL BE TRANSPORTATION HOME IF PATIENT IS DISCHARGED.
--- NOTE | 2019-11-28 08:45 | NUR ---
NOTIFIED BY DR LUZ PT IS LEVEL II STROKE. PTS C/C CHANGED TO STROKE ALERT
--- NOTE | 2019-11-28 09:20 | NUR ---
TC TO SERAFIN MCDOWELL TO INFORM THAT PATIENT WILL BE ADMITTED INPATIENT. SERAFIN INSTRUCTED THAT HE CAN CALL HER IN HER ROOM AFTER SHE IS ADMITTED TO FLOOR.
[2019-11-28 09:31] LABS: CLARITY,URINE SLIGHTLY CLOUDY (Clear); COLOR,URINE YELLOW (Yellow); GLUCOSE, URINE NEGATIVE (Neg); KETONES,URINE NEGATIVE (Neg); LEUKOCYTE ESTERASE ,URINE NEGATIVE (Neg); NITRITES, URINE NEGATIVE (Neg); OCCULT BLOOD,URINE NEGATIVE (Neg); PROTEIN,URINE NEGATIVE (Neg); UROBILINOGEN,URINE 0.2 E.U/dL (0.2-1.0)
[2019-11-28 09:33] LABS: UA COLLECTION TYPE VOIDED
[2019-11-28] MEDS: normal saline 1000ml 1,000 ML IV SCH ×3 (09:36→19:36)
[2019-11-28 09:40] LABS: SQUAMOUS EPITHELIAL CELL,UR MANY /LPF (FEW)
[2019-11-28] MEDS ORDERED: ondansetron/PF 4mg/2ml inj IV PRN (09:40)
[2019-11-28] MEDS ORDERED: magnesium 4gm in 100ml NS 100 ML IV PRN (09:40)
[2019-11-28] MEDS ORDERED: potassium CL 10mEq/100ml bag 100 ML IV PRN ×2 (09:40)
[2019-11-28] MEDS ORDERED: acetaminophen 325mg tablet PO PRN ×2 (09:40)
[2019-11-28] MEDS ORDERED: potassium Cl 20 mEq SR tablet PO PRN ×2 (09:40)
[2019-11-28] MEDS ORDERED: magnesium Cl slow-release 64mg tablet PO PRN (09:40)
[2019-11-28] MEDS ORDERED: magnesium 2GM in 50ml NS 50 ML IV PRN (09:40)
[2019-11-28 09:44] LABS: BACTERIA,URINE 2+ /HPF (Neg); CAL OXALATE CRYSTALS 4+ /HPF (NEGATIVE); RBC,URINE NONE SEEN /HPF (0-2); WBC,URINE 0-4 /HPF (0-4)
--- NOTE | 2019-11-28 10:15 | NUR ---
PATIENT'S SON, HECTOR CALLED FOR CONDITION REPORT.
[2019-11-28] MEDS ORDERED: METO-395 PO (10:37)
[2019-11-28] MEDS ORDERED: SIMV-42 PO (10:37)
--- NOTE | 2019-11-28 16:50 | NUR ---
Patient in room ORTHO 4014. I have received report from Belen BOWMAN and had the opportunity to ask questions and assume patient care.
[2019-11-28 17:06] VITALS: BP 141/83
--- NOTE | 2019-11-28 17:15 | NUR ---
sent a page to hospitalist letting her know that pt needs ativan in order to get through her mri, no new orders at this time, continue to monitor
--- NOTE | 2019-11-28 18:19 | NUR ---
Problems reprioritized. Patient report given, questions answered & plan of care reviewed with Shira BOWMAN.
--- NOTE | 2019-11-28 18:20 | NUR ---
Patient in room ORTHO 4014B. I have received report from GRACIE Andrade and had the opportunity to ask questions and assume patient care.
[2019-11-28] MEDS ORDERED: LORazepam 2 mg/ml vial IV PRN (19:25)
[2019-11-28] MEDS ORDERED: LORazepam 0.5 MG tablet PO PRN (19:25)
[2019-11-28] MEDS: heparin, porcine 5000 units/ml vial SQ SCH (19:32)
[2019-11-28] MEDS: docusate sod 100mg capsule PO SCH (19:34)
[2019-11-28] MEDS: K and/or MAG REPLACEMENT MC SCH (20:00)
[2019-11-28] MEDS ORDERED: temazepam 15mg capsule PO PRN (21:00)
[2019-11-28 22:00] VITALS: BP 130/46
[2019-11-29 02:00] VITALS: BP 138/74
[2019-11-29] MEDS: normal saline 1000ml 1,000 ML IV SCH ×2 (02:09→05:36)
[2019-11-29 06:00] VITALS: BP 143/53
--- NOTE | 2019-11-29 06:18 | NUR ---
Problems reprioritized. Patient report given, questions answered & plan of care reviewed with GRACIE Andrade.
--- NOTE | 2019-11-29 06:24 | NUR ---
Patient in room ORTHO 4014. I have received report from Shira BOWMAN and had the opportunity to ask questions and assume patient care.
[2019-11-29 06:28] LABS: ALBUMIN 3.2 G/DL (3.4-5.0); ANION GAP 8 (8-16); BLOOD UREA NITROGEN 16 MG/DL (7-18); BUN/CREATININE RATIO 19.8 (6.6-38.0); CHLORIDE 107 MMOL/L (99-107); CHOL/HDL RATIO 2.6 (0.00-4.99); CHOLESTEROL 148 MG/DL (0-200); CREATININE 0.81 MG/DL (0.40-0.90); GLUCOSE 101 MG/DL (70-104); HDL CHOLESTEROL 56 MG/DL (35-60); LDL CHOLESTEROL 67 MG/DL (50-100); MAGNESIUM 1.6 MG/DL (1.5-2.4); SODIUM 140 MMOL/L (135-145); TOTAL CARBON DIOXIDE 24.7 MMOL/L (24-32); TRIGLYCERIDES 145 MG/DL (20-135); eGFR 68 ML/MIN
[2019-11-29 06:33] LABS: POTASSIUM 4.1 MMOL/L (3.5-5.1)
[2019-11-29 07:12] LABS: BASOPHILS # (AUTO) 0.1 X10'3 (0-0.2); BASOPHILS % (AUTO) 0.9 % (0-1); EOSINOPHILS # (AUTO) 0.1 X10'3 (0-0.9); EOSINOPHILS % (AUTO) 1.6 % (0-6); HEMATOCRIT 40.3 % (35.0-45.0); HEMOGLOBIN 12.9 g/dl (12.0-16.0); LYMPHOCYTES # (AUTO) 1.8 X10'3 (1.1-4.8); LYMPHOCYTES % (AUTO) 26.2 % (21-51); MEAN CORPUSCULAR HEMOGLOBIN 29.1 PG (27.0-31.0); MEAN CORPUSCULAR VOLUME 90.9 FL (78-98); MEAN PLATELET VOLUME 10.6 FL (7.4-10.4); MONOCYTES # (AUTO) 0.6 X10'3 (0-0.9); MONOCYTES % (AUTO) 8.3 % (2-12); NEUTROPHILS # (AUTO) 4.3 X10'3 (1.8-7.7); PLATELET COUNT 202 X10'3 (140-440); RED BLOOD COUNT 4.43 X10'6 (4.20-5.60); RED CELL DISTRIBUTION WIDTH 16.5 % (11.5-14.5); WHITE BLOOD COUNT 6.9 X10'3 (4.5-11.0)
[2019-11-29] MEDS: docusate sod 100mg capsule PO SCH (08:00)
[2019-11-29] MEDS: K and/or MAG REPLACEMENT MC SCH (08:00)
[2019-11-29] MEDS: heparin, porcine 5000 units/ml vial SQ SCH (08:22)
[2019-11-29] MEDS ORDERED: aspirin 81mg tablet.DR PO SCH (09:00)
[2019-11-29 10:00] VITALS: BP 109/60
--- NOTE | 2019-11-29 11:01 | NUR ---
Pharmacy stated the hospital does not carry Zocor, Patient is allergic to Lipitor therefore patient will continue her Zocor on discharge.
--- NOTE | 2019-11-29 12:09 | NUR ---
physical therapy cleared pt for home d/c
[2019-11-29 14:00] VITALS: BP 130/94
--- NOTE | 2019-11-29 15:23 | NUR ---
Reviewed d/c packet with patient, demonstrated understanding questions were welcomed and addressed accordingly. Belongings sent with patient. patient was taken home by private vehicle to follow up with PCP.
--- NOTE | 2019-11-30 17:00 | NUR ---
Case Management DC follow up: spoke to pt via telephone. s/p: dizziness Reports:"feeling pretty good" Denies: acute/continuous CP, emergent SOB, resp distress, N/V, ROMERO, blurry vision, vertigo, syncope episodes, weakness,emergent general pain, abd tenderness/distension, bladder pain, dysuria, polyuria, hematuria, retention, constipation, diarrhea, fever, unexplained bleeding, bruising. Pt states staying hydrated r/t dehydration may have been contributing factor for pt dizziness. Verbalizes understanding of s/s that warrant 9-11/ER visit for further evaluation. Verbalizes understanding of Rx and why prescribed, resumes current Rx, taking as ordered, no ase r/t polypharmacy. Acknowledges need to schedule/keep follow up appts w/ PCP/[facility] 12/06/19. MDImaging sonogram/Kidneys 12/03/19. [facility] Care set up for pt. Verbalizes compliance w/DC aftercare. Needs met, questions answered at DC, no further questions or concerns at this time.
== END 2019-11-29 15:20 | disposition home health service (06) | DRG 641 ==
LOC: ER 06:36 → ED HOLD 09:36 → EDBEDREQ 16:03 → ORTHO 4S 16:45
PROVIDERS: ADMIT Internal Medicine; ATTEND Family Medicine
DX: E86.0 Dehydration (principal); E78.00 Pure hypercholesterolemia, unspecified; I10 Essential (primary) hypertension; E78.5 Hyperlipidemia, unspecified; G89.29 Other chronic pain; K21.9 Gastro-esophageal reflux disease without esophagitis; Z88.0 Allergy status to penicillin; Z88.5 Allergy status to narcotic agent; Z88.8 Allergy status to other drugs, medicaments and biological substances; Z86.73 Personal history of transient ischemic attack (TIA), and cerebral infarction without residual deficits; Z90.49 Acquired absence of other specified parts of digestive tract; Z90.710 Acquired absence of both cervix and uterus
CPT/HCPCS: 36415; 70450; 70544; 70551; 71045; 80048; 80053; 80061; 81001; 83735; 85025; 85610; 85730; 87081; 92508; 92616; 93005; 93306; 93880; 97110; 97161; 97530; 99285; G0378; J1644; J7030

== ENCOUNTER 2021-06-16 11:22 | Inpatient (IN) | payer MEDICARE, MEDICAID ==
[~2021-06-16] VITALS: Ht 147.3 cm; Wt 75.0 kg
[~2021-06-16 11:22] MED LIST changes: -ASPI-1130 PO; +ASPI-1397 PO; -MECL-184 PO; +METO-395 PO; -OMEP-50 PO; +OMEP20CA16 PO; +SIMV-42 PO; -TRAM50TA2 PO
--- NOTE | 2021-06-16 13:02 | NUR ---
pt to/from bsc independently, urine collected and sent to lab.
[2021-06-16 13:18] LABS: BASOPHILS % (AUTO) 0.2 % (0-1); EOSINOPHILS % (AUTO) 0 % (0-6); HEMATOCRIT 37.1 % (35.0-45.0); HEMOGLOBIN 12.2 g/dl (12.0-16.0); LYMPHOCYTES # (AUTO) 0.7 X10'3 (1.1-4.8); MEAN CORPUSCULAR HGB CONC 32.8 g/dL (33.0-36.5); MEAN CORPUSCULAR VOLUME 88.4 FL (78-98); MEAN PLATELET VOLUME 9.2 FL (7.4-10.4); MONOCYTES # (AUTO) 0.7 X10'3 (0-0.9); MONOCYTES % (AUTO) 5.5 % (2-12); NEUTROPHILS # (AUTO) 10.5 X10'3 (1.8-7.7); NEUTROPHILS % (AUTO) 88.3 % (42-75); PLATELET COUNT 340 X10'3 (140-440); RED CELL DISTRIBUTION WIDTH 15.8 % (11.5-14.5); WHITE BLOOD COUNT 11.8 X10'3 (4.5-11.0)
[2021-06-16 13:22] LABS: CLARITY,URINE CLEAR (Clear); COLOR,URINE YELLOW (Yellow); GLUCOSE, URINE NEGATIVE (Neg); KETONES,URINE 40 mg/dl (Neg); LEUKOCYTE ESTERASE ,URINE NEGATIVE (Neg); NITRITES, URINE NEGATIVE (Neg); OCCULT BLOOD,URINE NEGATIVE (Neg); PH,URINE 6.5 (4.8-8.0); PROTEIN,URINE 30 mg/dl (Neg)
[2021-06-16 13:29] LABS: RBC,URINE NONE SEEN /HPF (0-2); UA COLLECTION TYPE CLN CATCH MIDSTREAM; WBC,URINE 0-4 /HPF (0-4)
[2021-06-16 13:30] LABS: BACTERIA,URINE NONE SEEN /HPF (Neg); MUCUS STRANDS FEW /LPF (Neg); SQUAMOUS EPITHELIAL CELL,UR FEW /LPF (FEW)
[2021-06-16 13:34] LABS: ALANINE AMINOTRANSFERASE 34 U/L (12-78); ALBUMIN/GLOBULIN RATIO 0.6 (1.1-1.5); ALKALINE PHOSPHATASE 119 IU/L (46-116); ANION GAP 11 (8-16); ASPARTATE AMINO TRANSFERASE 30 U/L (10-37); BILIRUBIN,TOTAL 0.4 MG/DL (0.1-1.0); BLOOD UREA NITROGEN 11 MG/DL (7-18); BUN/CREATININE RATIO 13.9 (6.6-38.0); CHLORIDE 97 MMOL/L (99-107); CREATININE 0.79 MG/DL (0.40-0.90); GLUCOSE 112 MG/DL (70-104); POTASSIUM 3.6 MMOL/L (3.5-5.1); SODIUM 133 MMOL/L (135-145); TOTAL CARBON DIOXIDE 25.4 MMOL/L (24-32); eGFR 70 ML/MIN
[2021-06-16 13:41] LABS: LIPASE 66 U/L (73-393); MAGNESIUM 1.7 MG/DL (1.5-2.4)
[2021-06-16] MEDS ORDERED: dexamethasone sod phosphate 10mg/ml inj IV STA (14:05)
[2021-06-16] MEDS ORDERED: mag hydrox/Alum hydrox/simeth 30ml oral suspension PO PRN (14:40)
[2021-06-16] MEDS ORDERED: ondansetron/PF 4mg/2ml inj IV PRN (14:40)
[2021-06-16] MEDS ORDERED: ondansetron 4mg rapidly disintigrating tab PO PRN (14:40)
[2021-06-16] MEDS ORDERED: magnesium 4gm in 100ml NS 100 ML IV PRN (14:40)
[2021-06-16] MEDS ORDERED: potassium Cl 20 mEq SR tablet PO PRN ×2 (14:40)
[2021-06-16] MEDS ORDERED: magnesium 2GM in 50ml NS 50 ML IV PRN (14:40)
[2021-06-16] MEDS ORDERED: potassium CL 10mEq/100ml bag 100 ML IV PRN (14:40)
[2021-06-16] MEDS ORDERED: magnesium Cl slow-release 64mg tablet PO PRN (14:40)
[2021-06-16 15:02] LABS: D-DIMER 1.29 MG/L FEU (0-0.50)
[2021-06-16 15:20] LABS: C-REACTIVE PROTEIN 12.52 MG/DL (0.0-0.5)
--- NOTE | 2021-06-16 15:20 | NUR ---
I have received report from GRACIE BLACKWELL IN ER and had the opportunity to ask questions and assume patient care. WILL AWAIT PT TO ARRIVE TO THE FLOOR
[2021-06-16 15:30] VITALS: BP 165/72
--- NOTE | 2021-06-16 15:30 | NUR ---
PT ARRIVED TO THE FLOOR IN STABLE CONDITION. WALKED FROM RTULSA TO BED.GOT PT SETTLED. WILL CONTINUE TO MONITOR
[2021-06-16] MEDS ORDERED: REMDESIVIR 200 MG in NS 100ml IVPB Loading dose IV ONE (16:00)
[2021-06-16] MEDS: normal saline 1000ml 1,000 ML IV SCH (16:52)
[2021-06-16] MEDS: acetaminophen 325mg tablet PO PRN (16:59)
[2021-06-16] MEDS: enoxaparin 40mg/0.4ml syringe SUBCUT SCH (17:02)
[2021-06-16 18:00] VITALS: BP 148/68
--- NOTE | 2021-06-16 18:45 | NUR ---
Problems reprioritized. Patient report given, questions answered & plan of care reviewed with GRACIE LITTLE.
--- NOTE | 2021-06-16 19:00 | NUR ---
Patient in room ORTHO 4013. I have received report from KARTHIKEYAN BOWMAN and had the opportunity to ask questions and assume patient care.
[2021-06-16] MEDS: dexamethasone inj 6 MG in dextrose 5%-water 100 ML IV SCH (19:39)
[2021-06-16] MEDS: K and/or MAG REPLACEMENT MC SCH (20:00)
[2021-06-16] MEDS: docusate sod 100mg capsule PO SCH (20:00)
[2021-06-16 22:00] VITALS: BP 150/78
[2021-06-17 02:00] VITALS: BP 148/79
--- NOTE | 2021-06-17 02:29 | NUR ---
2215 WOKE UP NEEDING TO VOID AND HAD FORGOTTEN ABOUT USING HER CALL LIGHT, GOT HERSELF UP TO THE BSC, BUT GOT HER IV TANGLED UP AND PULLED IT OUT. PATIENT WAS CALLING OUT FOR HELP AND FOUND HER UP ON THE COMMODE AND BLEEDING FROM THE PUNCTURE SITE. BANDAGED WRIST, LINEN AND GOWN CHANGED. PATIENT STATED SHE FORGOT WHERE THE CALL LIGHT WAS (IT WAS TIED ONTO HER TV). SUPPLIES GATHERED TO RESTART PIV. 2ND ATTEMPT PLACED A 22G INTO RFA. RE EDUCATED PATIENT ON THE CALL LIGHT, IT'S IMPORTANCE AND PLACED WITHING HER REACH. STATED UNDERSTANDING AND IS NOT GOING TO TRY GETTING UP WITHOUT CALLING FOR ASSISTANCE AGAIN.
[2021-06-17] MEDS: normal saline 1000ml 1,000 ML IV SCH ×3 (05:05→20:40)
[2021-06-17 06:00] VITALS: BP 120/72
--- NOTE | 2021-06-17 06:45 | NUR ---
Problems reprioritized. Patient report given, questions answered & plan of care reviewed with RAMON BOWMAN.
[2021-06-17] MEDS: docusate sod 100mg capsule PO SCH ×2 (07:34→20:00)
[2021-06-17] MEDS: dexamethasone inj 6 MG in dextrose 5%-water 100 ML IV SCH ×2 (07:34→20:41)
[2021-06-17] MEDS: enoxaparin 40mg/0.4ml syringe SUBCUT SCH (07:35)
[2021-06-17 07:51] LABS: BASOPHILS % (AUTO) 0.4 % (0-1); EOSINOPHILS % (AUTO) 0 % (0-6); HEMATOCRIT 35.8 % (35.0-45.0); HEMOGLOBIN 11.7 g/dl (12.0-16.0); LYMPHOCYTES # (AUTO) 0.7 X10'3 (1.1-4.8); LYMPHOCYTES % (AUTO) 6.7 % (21-51); MEAN CORPUSCULAR HEMOGLOBIN 29.1 PG (27.0-31.0); MEAN CORPUSCULAR HGB CONC 32.6 g/dL (33.0-36.5); MEAN CORPUSCULAR VOLUME 89.4 FL (78-98); MEAN PLATELET VOLUME 10.2 FL (7.4-10.4); MONOCYTES # (AUTO) 0.5 X10'3 (0-0.9); NEUTROPHILS # (AUTO) 9.1 X10'3 (1.8-7.7); NEUTROPHILS % (AUTO) 87.9 % (42-75); PLATELET COUNT 352 X10'3 (140-440); RED BLOOD COUNT 4.01 X10'6 (4.20-5.60); RED CELL DISTRIBUTION WIDTH 15.9 % (11.5-14.5); WHITE BLOOD COUNT 10.4 X10'3 (4.5-11.0)
[2021-06-17] MEDS: K and/or MAG REPLACEMENT MC SCH ×2 (08:00→20:00)
[2021-06-17 08:19] LABS: ALBUMIN 2.8 G/DL (3.4-5.0); ANION GAP 13 (8-16); BLOOD UREA NITROGEN 16 MG/DL (7-18); BUN/CREATININE RATIO 28.1 (6.6-38.0); C-REACTIVE PROTEIN 13.81 MG/DL (0.0-0.5); CALCIUM 9.4 MG/DL (8.5-10.1); CHLORIDE 107 MMOL/L (99-107); CREATININE 0.57 MG/DL (0.40-0.90); GLUCOSE 137 MG/DL (70-104); LACTATE DEHYDROGENASE 423 U/L (81-234); POTASSIUM 4.3 MMOL/L (3.5-5.1); SODIUM 143 MMOL/L (135-145); TOTAL CARBON DIOXIDE 23.5 MMOL/L (24-32); eGFR > 90 ML/MIN
[2021-06-17 09:53] LABS: D-DIMER 1.05 MG/L FEU (0-0.50)
[2021-06-17 11:00] VITALS: BP 139/70
[2021-06-17 15:00] VITALS: BP 161/65
[2021-06-17] MEDS: REMDESIVIR INJ 100 MG in normal saline 100ml IV soln 100 ML IV SCH (17:31)
[2021-06-17 18:00] VITALS: BP 173/92
[2021-06-17 22:00] VITALS: BP 165/64
[2021-06-18] VITALS (12 sets, daily range): BP systolic 113–194; BP diastolic 71–95
--- NOTE | 2021-06-18 06:45 | NUR ---
Patient in room ORTHO 4013A. I have received report from GRACIE CARDOZA and had the opportunity to ask questions and assume patient care.
[2021-06-18] MEDS: K and/or MAG REPLACEMENT MC SCH ×2 (07:11→08:00)
[2021-06-18] MEDS: normal saline 1000ml 1,000 ML IV SCH (07:34)
--- NOTE | 2021-06-18 07:38 | NUR ---
IZABELLA RT...PT SAO2 MAINTAINING LOW 80'S
[2021-06-18 07:55] LABS: D-DIMER 2.19 MG/L FEU (0-0.50)
[2021-06-18 08:00] LABS: BASOPHILS % (AUTO) 0.1 % (0-1); EOSINOPHILS % (AUTO) 0 % (0-6); HEMATOCRIT 36.6 % (35.0-45.0); HEMOGLOBIN 11.7 g/dl (12.0-16.0); LYMPHOCYTES # (AUTO) 0.8 X10'3 (1.1-4.8); LYMPHOCYTES % (AUTO) 3.2 % (21-51); MEAN CORPUSCULAR HEMOGLOBIN 28.2 PG (27.0-31.0); MEAN CORPUSCULAR VOLUME 88.3 FL (78-98); MONOCYTES # (AUTO) 1.7 X10'3 (0-0.9); MONOCYTES % (AUTO) 7.1 % (2-12); NEUTROPHILS # (AUTO) 21.1 X10'3 (1.8-7.7); NEUTROPHILS % (AUTO) 89.6 % (42-75); PLATELET COUNT 432 X10'3 (140-440); RED BLOOD COUNT 4.14 X10'6 (4.20-5.60); RED CELL DISTRIBUTION WIDTH 16.3 % (11.5-14.5); WHITE BLOOD COUNT 23.5 X10'3 (4.5-11.0)
[2021-06-18] MEDS: enoxaparin 40mg/0.4ml syringe SUBCUT SCH ×2 (08:00→19:49)
[2021-06-18] MEDS: docusate sod 100mg capsule PO SCH ×2 (08:00→19:34)
--- NOTE | 2021-06-18 08:28 | NUR ---
Page Sent PAGER ID: [phone] MESSAGE: KARTHIKEYAN [id number]: [id number] CRESCENCIO BUSH...PT O2 NEEDS INCREASED, RT PLACED ON HF TOWER 60L & 100%FIO2...PT JUST NOW COUCHING UP BRIGHT RED NADIYA BLOOD...RT ORDERED STAT XRAY
[2021-06-18 08:36] LABS: ALBUMIN 2.7 G/DL (3.4-5.0); ANION GAP 12 (8-16); BLOOD UREA NITROGEN 19 MG/DL (7-18); BUN/CREATININE RATIO 33.3 (6.6-38.0); C-REACTIVE PROTEIN 8.93 MG/DL (0.0-0.5); CALCIUM 8.9 MG/DL (8.5-10.1); CHLORIDE 104 MMOL/L (99-107); CREATININE 0.57 MG/DL (0.40-0.90); GLUCOSE 132 MG/DL (70-104); LACTATE DEHYDROGENASE 600 U/L (81-234); MAGNESIUM 1.8 MG/DL (1.5-2.4); POTASSIUM 4.2 MMOL/L (3.5-5.1); SODIUM 139 MMOL/L (135-145); eGFR > 90 ML/MIN
[2021-06-18] MEDS: dexamethasone inj 6 MG in dextrose 5%-water 100 ML IV SCH (08:47)
[2021-06-18] MEDS: acetaminophen 325mg tablet PO PRN (08:52)
--- NOTE | 2021-06-18 08:56 | NUR ---
HELD LOVENOX DUE TO PT COUGHING UP NADIYA RED BLOOD...MED NOTIFIED
[2021-06-18 09:07] LABS: ABG BASE EXCESS -0.5 mmol/L (-2.0-2.0); ABG HCO3 23.8 mmol/L (22.0-26.0); ABG OXYGEN SATURATION 81.7 % (94-97); ABG PCO2 (T) 39.6 mmHg (32.0-45.0); ABG PO2 (T) 49.4 mmHg (75.0-100.0); ALLEN'S TEST POSITIVE; FCOHb 0.3 % (0.0-3.9); FLOW 60 L/min; FMetHb 0.3 % (0.0-1.5); FO2Hb 81.2 % (94-97)
--- NOTE | 2021-06-18 09:32 | NUR ---
PAGER ID: [phone] MESSAGE: Julia Bennett Dr. Sam said Renetta Rivera needs to go to ICU based on chest x-ray. His # is [phone]. Ramona 5199 4[address] floor.
[2021-06-18] MEDS ORDERED: PERFLUTREN PROTEIN-A MICROSPHR (Optison) 0.22 MG/ML 3ML VIAL IV ONE (09:40)
--- NOTE | 2021-06-18 10:31 | NUR ---
Transfer to ICU Patient transfers to ICU with GRACIE Aiken from ortho floor that I receive patient report from. Patient arrives on BIPAP at 100% satting 92%. Due to the anatomy of her small face/chin, she has a frequent leak. RT and I discuss other options. Patient is given more Zofran due nausea complaint. Patient is hypertensive. I educate patient on intubation and what follows asking her if she wants to be intubated should we have to. The patient states that she does not want to, but will defer to her son's wishes. I call son, Sinan, and update him on the transfer and situation. He states that he wants everything done. I communicate that the patient states that she does not and that she is alert and oriented x 4. He states that he wants to pray about it for a while and wants me to call him back in an hour.
--- NOTE | 2021-06-18 10:37 | NUR ---
ON AM ASSESSMENT PT SAO2 LOW 80'S, RT WAS PAGED...STAT CXR & ABG DONE.... NOTIFIED...TRANSFER ORDERS IN TO CICU...PT WAS TRANSFERED AT 0950 WITH RT TRUDI JOSHI, PT IN STABLE CONDITION
[2021-06-18] MEDS ORDERED: LIDOcaine 2% 10ml TOPICAL JELLY (Urojet) TP ONE (10:45)
[2021-06-18] MEDS ORDERED: furosemide 40mg/4ml inj IV ONE (11:00)
[2021-06-18] MEDS: proCHLORperazine 10 MG/2 ml inj IV PRN ×2 (11:23→19:31)
[2021-06-18] MEDS ORDERED: levoFLOXACIN-Levaquin 500mg/D5 100 ML IV ONE (11:25)
[2021-06-18] MEDS ORDERED: VANCOMYCIN 1GM/200ML IVPB 200 ML IV ONE (11:25)
[2021-06-18] MEDS ORDERED: furosemide 40mg/4ml inj IV SCH (12:00)
[2021-06-18] MEDS ORDERED: OLME5TAB6 PO (13:05)
[2021-06-18] MEDS ORDERED: ATOR40TA72 PO (13:05)
--- NOTE | 2021-06-18 13:35 | NUR ---
Update Patient is restless and the shape of her face is proving to be a challenge in maintaining BIPAP mask. Barb Marcos from ID rounded and asked that I hold off on the antibiotics until we get blood cultures. I placed culture orders, but lab did not come. I called lab and they are short-staffed. They verbalize that they will be up shortly. Patient is in the middle of a PICC placement at this time, therefore, we will draw of the line and a venapuncture when they do arrive. Patient's fever from this morning resolved. Patient has a leak around her rees. After the one dose of lasix's effects resolve, I will confer with physician to remove or keep it. Patient's current settings for BIPAP are 18/10 on 100% FiO2. Prior to PICC, I added another peripheral IV. Dr. Zimmer did speak with son again and patient is switched to DNR. Son, Sinan, calls the unit for another update and is provided one.
[2021-06-18] MEDS: LORazepam 2 mg/ml vial IV PRN ×2 (14:17→19:31)
[2021-06-18] MEDS ORDERED: midazolam 1 mg/ML 2ml injection ONE (14:35)
[2021-06-18 16:33] LABS: ABG BASE EXCESS 0.7 mmol/L (-2.0-2.0); ABG HCO3 24.8 mmol/L (22.0-26.0); ABG OXYGEN SATURATION 82.3 % (94-97); ABG PCO2 (T) 39.6 mmHg (32.0-45.0); ABG PO2 (T) 48.1 mmHg (75.0-100.0); ALLEN'S TEST POSITIVE; FCOHb 0.3 % (0.0-3.9); FMetHb 0.1 % (0.0-1.5); PATIENT TEMPERATURE 37.8; TOTAL HEMOGLOBIN 12.8 G/dl (12.0-16.0)
[2021-06-18] MEDS: methylPREDNISolone sod succ 125mg/2ml vial IV SCH ×2 (17:34→19:32)
--- NOTE | 2021-06-18 18:58 | NUR ---
End of Shift Patient continues to writhe in bed. Lasix dose result was 1800 cc out. Patient sats 92% when still and with good seal on BIPAP mask, but more consistently she lives in the mid 80's. Boyfriend, Cachorro, and son, Sinan, are called with updates. The topic of comfort care is broached with the son. He states that he will pray on it and call us back. Report given to GRACIE Cline with updates, plans, and knowledge that Remdesivir still hasn't arrived from pharmacy. PICC doesn't have adequate blood return for a blood sample, but infuses well and purple line can get some blood return. PICC RN is on unit after insertion and attempt and verbalizes that it is still good to use.
[2021-06-18] MEDS: REMDESIVIR INJ 100 MG in normal saline 100ml IV soln 100 ML IV SCH (19:28)
--- NOTE | 2021-06-18 23:00 | NUR ---
pt is apparent respiratory distress. Pt is tachypneic as well as tachycardic. spoke with Dr. Franco. Initially, the plan was to administer Dilaudid, however, we discovered pt has an allergy to medication. Dr. Franco then proceeded to order a Precedex drip, hoping to decrease distress and agitation. Ann Fraser RN
[2021-06-18] MEDS: dexmedetomidine/D5W 100mL 100 ML IV SCH (23:13)
[2021-06-19] VITALS (26 sets, daily range): BP systolic 125–178; BP diastolic 65–113
[2021-06-19] MEDS: LORazepam 2 mg/ml vial IV PRN ×4 (02:58→19:40)
[2021-06-19 03:33] LABS: BASOPHILS % (AUTO) 0 % (0-1); EOSINOPHILS % (AUTO) 0 % (0-6); HEMATOCRIT 34.9 % (35.0-45.0); HEMOGLOBIN 11.2 g/dl (12.0-16.0); LYMPHOCYTES # (AUTO) 0.5 X10'3 (1.1-4.8); LYMPHOCYTES % (AUTO) 2.6 % (21-51); MEAN CORPUSCULAR HEMOGLOBIN 28.3 PG (27.0-31.0); MEAN CORPUSCULAR HGB CONC 32.2 g/dL (33.0-36.5); MEAN PLATELET VOLUME 9.2 FL (7.4-10.4); MONOCYTES # (AUTO) 0.8 X10'3 (0-0.9); MONOCYTES % (AUTO) 4.1 % (2-12); NEUTROPHILS % (AUTO) 93.3 % (42-75); PLATELET COUNT 349 X10'3 (140-440); RED BLOOD COUNT 3.96 X10'6 (4.20-5.60); RED CELL DISTRIBUTION WIDTH 16.2 % (11.5-14.5); WHITE BLOOD COUNT 20.4 X10'3 (4.5-11.0)
[2021-06-19 03:54] LABS: D-DIMER 11.89 MG/L FEU (0-0.50)
[2021-06-19 04:06] LABS: ALANINE AMINOTRANSFERASE 29 U/L (12-78); ALBUMIN 2.6 G/DL (3.4-5.0); ALBUMIN/GLOBULIN RATIO 0.7 (1.1-1.5); ALKALINE PHOSPHATASE 113 IU/L (46-116); ANION GAP 7 (8-16); ASPARTATE AMINO TRANSFERASE 61 U/L (10-37); BILIRUBIN,TOTAL 0.8 MG/DL (0.1-1.0); BLOOD UREA NITROGEN 26 MG/DL (7-18); BUN/CREATININE RATIO 39.4 (6.6-38.0); C-REACTIVE PROTEIN 16.59 MG/DL (0.0-0.5); CALCIUM 8.6 MG/DL (8.5-10.1); CHLORIDE 104 MMOL/L (99-107); CREATININE 0.66 MG/DL (0.40-0.90); GLUCOSE 156 MG/DL (70-104); LACTATE DEHYDROGENASE 1138 U/L (81-234); MAGNESIUM 1.8 MG/DL (1.5-2.4); PHOSPHORUS 4.2 MG/DL (2.3-4.5); POTASSIUM 4.1 MMOL/L (3.5-5.1); SODIUM 140 MMOL/L (135-145); TOTAL CARBON DIOXIDE 29.1 MMOL/L (24-32); TOTAL PROTEIN 6.1 G/DL (6.4-8.2); eGFR 86 ML/MIN
[2021-06-19] MEDS: K and/or MAG REPLACEMENT MC SCH ×2 (07:11→20:00)
--- NOTE | 2021-06-19 07:12 | NUR ---
RECEIVED CALL FROM SON HECTOR FOR UPDATE, NOTIFIED HIM OF PATIENT CURRENT STATUS. ASKED IF PATIENT WENT ON HOSPICE WOULD THERE BE ANYWAY TO SEE HIS MOM. DID LET PATIENT KNOW THAT IF END OF LIFE CARE IS DECIDED HE CAN VISIT MOTHER WITHOUT ANY RESTRICTIONS.
[2021-06-19] MEDS: methylPREDNISolone sod succ 125mg/2ml vial IV SCH ×2 (07:27→16:22)
[2021-06-19] MEDS: enoxaparin 40mg/0.4ml syringe SUBCUT SCH (07:27)
[2021-06-19] MEDS: levoFLOXACIN-Levaquin 500mg/D5 100 ML IV SCH (07:30)
[2021-06-19] MEDS: dexmedetomidine/D5W 100mL 100 ML IV SCH ×4 (07:43→21:07)
[2021-06-19] MEDS: docusate sod 100mg capsule PO SCH ×2 (07:48→19:41)
--- NOTE | 2021-06-19 07:49 | NUR ---
PATIENT LETHARGIC, DELAYED RESPONSE ON ATTEMPT TO AROUSE, CAN BARELY OPEN EYES AND MOANS AND GROANS NO VERBAL RESPONSES. PATIENT IS SINUS RHYTHM ON THE MONITOR HR IN THE 60'S, BP STABLE, CURRENTLY ON BIPAP WITH SETTINGS 18/12 FIO2 100% SATURATIONS RANGING FROM 85-90% PATIENT TACHYPNIC RR IN THE 30'S WILL GO HIGH 60 WHEN SHE BECOMES RESTLESS. LUNG SOUNDS COARSE. CURRENTLY NPO, ABDOMEN SOFT NONTENDER BOWEL SOUNDS HYPOACTIVE. HAQUE CATHETER IN PLACE PATENT DRAINING TO GRAVITY CLEAR YELLOW URINE. SKIN INTACT. PATIENT HAS A PICC LINE TO THE RIGHT UPPER ARM POSITIONAL WHEN DRAWING BLOOD FLUSHES WELL CURRENTLY INFUSING. RT FA 20G AND RT WRIST 18G BOTH SALINE LOCKED. PRECEDEX RUNNING TO KEEP PATIENT CALM AND COMFORTABLE WITH ATIVAN 1MG PRN AVAILABLE WELL.
--- NOTE | 2021-06-19 11:35 | NUR ---
TPN consult: Pt admit for COVID PNA and oliguria. Per MD note CXR 06/18 shows rapidly worsening pneumonia with central pulmonary congestion and pt transferred to critical care. Pt currently BiPAP dependent and to begin TPN per MD at critical care rounds. Per EMR pt with a PICC in place. TPN recommendations below have been d/w clinical pharmacist. IBW was used to calculate estimated nutrient needs as current documented wt isn't scaled, will adjust recommendations as appropriate once a scaled weight is obtained. Prior to NPO status pt was documented with average 25% PO intake of meals on heart healthy diet not meeting estimated nutrient needs. Recommend advancing to regular diet as medically indicated. LBM 06/17, with routine bowel care available though not given since admit per EMR. Will continue to follow closely. Recommendations: 1) Continuous TPN per MD using 2:1 Clinimix-E 09/28 with 53 mL/hr goal rate with additional 250 mL 20% intralipids to run at 20.83 mL/hr for 12 hours on Tuesdays and Fridays. In total to provide 1272 mL total volume/day, 64 g AA, 254 g dext (3.10 mg/kg/min dext load), and 1262 average kcal 2) Monitor for scaled weight and adjust nutrition recs as appropriate 3) Prealbumin q Friday/ 4) Daily scaled weights 5) Routine bowel care 6) Advance to regular diet as medically indicated in view of geriatric age and poor PO intake prior to NPO status Addendum: 06/19/21 at [address] Amended: Links added.
[2021-06-19 12:18] LABS: ALANINE AMINOTRANSFERASE 30 U/L (12-78); ALBUMIN 2.5 G/DL (3.4-5.0); ALBUMIN/GLOBULIN RATIO 0.7 (1.1-1.5); ALKALINE PHOSPHATASE 112 IU/L (46-116); ANION GAP 7 (8-16); ASPARTATE AMINO TRANSFERASE 43 U/L (10-37); BILIRUBIN,TOTAL 0.7 MG/DL (0.1-1.0); BLOOD UREA NITROGEN 32 MG/DL (7-18); BUN/CREATININE RATIO 45.7 (6.6-38.0); CALCIUM 8.5 MG/DL (8.5-10.1); CHLORIDE 104 MMOL/L (99-107); GLUCOSE 173 MG/DL (70-104); MAGNESIUM 1.9 MG/DL (1.5-2.4); PHOSPHORUS 4.2 MG/DL (2.3-4.5); POTASSIUM 4.1 MMOL/L (3.5-5.1); PREALBUMIN 9.2 MG/DL (19-36); SODIUM 140 MMOL/L (135-145); TOTAL CARBON DIOXIDE 29.1 MMOL/L (24-32); TRIGLYCERIDES 67 MG/DL (20-135); eGFR 80 ML/MIN
[2021-06-19] MEDS: REMDESIVIR INJ 100 MG in normal saline 100ml IV soln 100 ML IV SCH (16:22)
[2021-06-19] MEDS: VANCOMYCIN 1GM/200ML IVPB 200 ML IV SCH (16:22)
[2021-06-19] MEDS: enoxaparin 60mg/0.6ml syringe SUBCUT SCH (19:41)
[2021-06-19] MEDS ORDERED: Dextrose 10%-water IV solution 1,000 ML IV PRN (21:00)
[2021-06-19] MEDS: ZINC/COPPER/MANGANESE/SELENIUM 0.5 ML, chromic chloride inj. 5 MCG in AA 5%/CALCIUM/LYT... IV SCH (21:06)
[2021-06-19] MEDS ORDERED: glucagon, human recombinant 1mg kit SUBCUT PRN (21:30)
[2021-06-19] MEDS ORDERED: dextrose ORAL solution 15 GM/59 ML bottle PO PRN ×2 (21:30)
[2021-06-19] MEDS ORDERED: dextrose 50%-water 50ml dispensing syringe IV PRN ×2 (21:30)
--- NOTE | 2021-06-19 21:56 | NUR ---
Pt has 2 blood sugars greater than 160mg/dl. Per protocol, Hyperglycemia protocol is to be initiated. Dr. Mendieta has been notified. He is okay with corrective insulin, however, he does not want to initiate Lantus therapy at this moment. Order has been entered as such. Ann Fraser RN
[2021-06-19] MEDS: insulin regular, human U-100 3ml vial - multi-dose SQ SCH (22:05)
[2021-06-20] VITALS (26 sets, daily range): BP systolic 135–193; BP diastolic 50–87
[2021-06-20] MEDS: LORazepam 2 mg/ml vial IV PRN ×4 (01:12→21:45)
[2021-06-20] MEDS: dexmedetomidine/D5W 100mL 100 ML IV SCH ×6 (01:53→23:26)
[2021-06-20 01:58] LABS: D-DIMER 4.67 MG/L FEU (0-0.50)
[2021-06-20 02:03] LABS: BASOPHILS % (AUTO) 0.1 % (0-1); EOSINOPHILS % (AUTO) 0 % (0-6); HEMOGLOBIN 11.8 g/dl (12.0-16.0); LYMPHOCYTES # (AUTO) 0.5 X10'3 (1.1-4.8); LYMPHOCYTES % (AUTO) 2.3 % (21-51); MEAN CORPUSCULAR HEMOGLOBIN 28.3 PG (27.0-31.0); MEAN CORPUSCULAR HGB CONC 32.1 g/dL (33.0-36.5); MEAN CORPUSCULAR VOLUME 88.4 FL (78-98); MEAN PLATELET VOLUME 8.8 FL (7.4-10.4); MONOCYTES % (AUTO) 4.4 % (2-12); NEUTROPHILS # (AUTO) 21.7 X10'3 (1.8-7.7); NEUTROPHILS % (AUTO) 93.2 % (42-75); PLATELET COUNT 359 X10'3 (140-440); RED BLOOD COUNT 4.18 X10'6 (4.20-5.60); RED CELL DISTRIBUTION WIDTH 16.4 % (11.5-14.5); WHITE BLOOD COUNT 23.3 X10'3 (4.5-11.0)
[2021-06-20] MEDS: insulin regular, human U-100 3ml vial - multi-dose SQ SCH ×4 (02:07→21:03)
[2021-06-20 02:32] LABS: ALANINE AMINOTRANSFERASE 29 U/L (12-78); ALBUMIN 2.5 G/DL (3.4-5.0); ALBUMIN/GLOBULIN RATIO 0.7 (1.1-1.5); ALKALINE PHOSPHATASE 126 IU/L (46-116); ANION GAP 8 (8-16); ASPARTATE AMINO TRANSFERASE 32 U/L (10-37); BILIRUBIN,TOTAL 0.6 MG/DL (0.1-1.0); BLOOD UREA NITROGEN 36 MG/DL (7-18); C-REACTIVE PROTEIN 16.17 MG/DL (0.0-0.5); CALCIUM 8.8 MG/DL (8.5-10.1); CHLORIDE 103 MMOL/L (99-107); CREATININE 0.72 MG/DL (0.40-0.90); GLUCOSE 230 MG/DL (70-104); LACTATE DEHYDROGENASE 891 U/L (81-234); MAGNESIUM 2.1 MG/DL (1.5-2.4); PHOSPHORUS 3.8 MG/DL (2.3-4.5); POTASSIUM 3.9 MMOL/L (3.5-5.1); SODIUM 140 MMOL/L (135-145); TOTAL CARBON DIOXIDE 29.1 MMOL/L (24-32); TOTAL PROTEIN 6.2 G/DL (6.4-8.2); eGFR 78 ML/MIN
--- NOTE | 2021-06-20 06:20 | NUR ---
Patient in room CICU 2014. I have received report from Lexus BOWMAN and had the opportunity to ask questions and assume patient care.
[2021-06-20] MEDS: K and/or MAG REPLACEMENT MC SCH ×2 (08:00→20:00)
[2021-06-20] MEDS: docusate sod 100mg capsule PO SCH ×2 (08:00→20:00)
[2021-06-20 08:08] LABS: BASOPHILS % (AUTO) 0.1 % (0-1); EOSINOPHILS % (AUTO) 0 % (0-6); LYMPHOCYTES # (AUTO) 0.7 X10'3 (1.1-4.8); LYMPHOCYTES % (AUTO) 2.3 % (21-51); MEAN CORPUSCULAR HEMOGLOBIN 27.9 PG (27.0-31.0); MEAN CORPUSCULAR HGB CONC 31.6 g/dL (33.0-36.5); MEAN CORPUSCULAR VOLUME 88.4 FL (78-98); MEAN PLATELET VOLUME 9.6 FL (7.4-10.4); MONOCYTES # (AUTO) 1.7 X10'3 (0-0.9); NEUTROPHILS # (AUTO) 26.8 X10'3 (1.8-7.7); NEUTROPHILS % (AUTO) 91.6 % (42-75); PLATELET COUNT 396 X10'3 (140-440); RED BLOOD COUNT 4.29 X10'6 (4.20-5.60); RED CELL DISTRIBUTION WIDTH 16.1 % (11.5-14.5)
[2021-06-20] MEDS: levoFLOXACIN-Levaquin 500mg/D5 100 ML IV SCH (08:19)
[2021-06-20] MEDS: enoxaparin 60mg/0.6ml syringe SUBCUT SCH ×2 (08:19→20:55)
[2021-06-20] MEDS: methylPREDNISolone sod succ 125mg/2ml vial IV SCH ×3 (08:20→15:57)
[2021-06-20 08:29] LABS: WHITE BLOOD COUNT 29.2 X10'3 (4.5-11.0)
[2021-06-20 08:37] LABS: ALANINE AMINOTRANSFERASE 28 U/L (12-78); ALBUMIN 2.4 G/DL (3.4-5.0); ALBUMIN/GLOBULIN RATIO 0.6 (1.1-1.5); ALKALINE PHOSPHATASE 120 IU/L (46-116); ANION GAP 7 (8-16); ASPARTATE AMINO TRANSFERASE 27 U/L (10-37); BILIRUBIN,TOTAL 0.6 MG/DL (0.1-1.0); BLOOD UREA NITROGEN 34 MG/DL (7-18); BUN/CREATININE RATIO 56.7 (6.6-38.0); CALCIUM 8.7 MG/DL (8.5-10.1); CHLORIDE 105 MMOL/L (99-107); GLUCOSE 192 MG/DL (70-104); POTASSIUM 4.4 MMOL/L (3.5-5.1); SODIUM 141 MMOL/L (135-145); TOTAL CARBON DIOXIDE 29.4 MMOL/L (24-32); TOTAL PROTEIN 6.2 G/DL (6.4-8.2); eGFR > 90 ML/MIN
[2021-06-20 09:26] LABS: ANISOCYTOSIS 1+; BURR CELLS 1+; ELLIPTOCYTES 1+; HYPERSEGMENTED NEUTROPHILS FEW; PLATELET ESTIMATE NORMAL; TOTAL CELLS COUNTED 100
[2021-06-20 09:27] LABS: LARGE PLATELETS FEW; SCHISTOCYTES FEW
[2021-06-20] MEDS: pantoprazole 40MG/NS 100ML BAG 100 ML IV SCH (12:49)
[2021-06-20] MEDS: VANCOMYCIN 1GM/200ML IVPB 200 ML IV SCH (17:26)
[2021-06-20] MEDS: REMDESIVIR INJ 100 MG in normal saline 100ml IV soln 100 ML IV SCH (17:26)
--- NOTE | 2021-06-20 18:26 | NUR ---
Problems reprioritized. Patient report given, questions answered & plan of care reviewed with Jhonathan BOWMAN.
[2021-06-21] VITALS (23 sets, daily range): BP systolic 113–178; BP diastolic 34–73
[2021-06-21] MEDS: ZINC/COPPER/MANGANESE/SELENIUM 0.5 ML, chromic chloride inj. 5 MCG in AA 5%/CALCIUM/LYT... IV SCH ×2 (00:07→20:55)
[2021-06-21] MEDS: methylPREDNISolone sod succ 125mg/2ml vial IV SCH ×3 (01:14→16:14)
[2021-06-21] MEDS: insulin regular, human U-100 3ml vial - multi-dose SQ SCH ×4 (01:54→22:33)
[2021-06-21 03:24] LABS: BASOPHILS % (AUTO) 0.1 % (0-1); EOSINOPHILS % (AUTO) 0 % (0-6); HEMATOCRIT 36.6 % (35.0-45.0); HEMOGLOBIN 11.7 g/dl (12.0-16.0); LYMPHOCYTES # (AUTO) 0.5 X10'3 (1.1-4.8); LYMPHOCYTES % (AUTO) 1.8 % (21-51); MEAN CORPUSCULAR HEMOGLOBIN 28.1 PG (27.0-31.0); MEAN CORPUSCULAR HGB CONC 31.9 g/dL (33.0-36.5); MEAN PLATELET VOLUME 9.6 FL (7.4-10.4); MONOCYTES # (AUTO) 1.3 X10'3 (0-0.9); MONOCYTES % (AUTO) 4.6 % (2-12); NEUTROPHILS # (AUTO) 26.5 X10'3 (1.8-7.7); NEUTROPHILS % (AUTO) 93.5 % (42-75); PLATELET COUNT 374 X10'3 (140-440); RED BLOOD COUNT 4.17 X10'6 (4.20-5.60); RED CELL DISTRIBUTION WIDTH 15.9 % (11.5-14.5)
[2021-06-21 03:41] LABS: D-DIMER 2.66 MG/L FEU (0-0.50)
[2021-06-21 03:47] LABS: WHITE BLOOD COUNT 28.4 X10'3 (4.5-11.0)
[2021-06-21 04:05] LABS: ALANINE AMINOTRANSFERASE 22 U/L (12-78); ALBUMIN 2.1 G/DL (3.4-5.0); ALBUMIN/GLOBULIN RATIO 0.6 (1.1-1.5); ALKALINE PHOSPHATASE 113 IU/L (46-116); ANION GAP 10 (8-16); ASPARTATE AMINO TRANSFERASE 17 U/L (10-37); BILIRUBIN,TOTAL 0.4 MG/DL (0.1-1.0); BLOOD UREA NITROGEN 32 MG/DL (7-18); BUN/CREATININE RATIO 51.6 (6.6-38.0); CALCIUM 8.3 MG/DL (8.5-10.1); CHLORIDE 105 MMOL/L (99-107); CREATININE 0.62 MG/DL (0.40-0.90); GLUCOSE 214 MG/DL (70-104); LACTATE DEHYDROGENASE 694 U/L (81-234); PHOSPHORUS 2.9 MG/DL (2.3-4.5); PREALBUMIN 10.5 MG/DL (19-36); SODIUM 142 MMOL/L (135-145); TOTAL CARBON DIOXIDE 27.4 MMOL/L (24-32); TOTAL PROTEIN 5.5 G/DL (6.4-8.2); TRIGLYCERIDES 44 MG/DL (20-135); eGFR > 90 ML/MIN
[2021-06-21 04:11] LABS: C-REACTIVE PROTEIN 7.86 MG/DL (0.0-0.5)
[2021-06-21] MEDS: dexmedetomidine/D5W 100mL 100 ML IV SCH ×6 (04:23→23:47)
[2021-06-21 07:14] LABS: PLATELET ESTIMATE NORMAL; TOTAL CELLS COUNTED 100
[2021-06-21 07:15] LABS: BURR CELLS 1+; ELLIPTOCYTES 1+; LARGE PLATELETS FEW
[2021-06-21] MEDS: pantoprazole 40MG/NS 100ML BAG 100 ML IV SCH (07:42)
[2021-06-21] MEDS: levoFLOXACIN-Levaquin 500mg/D5 100 ML IV SCH (07:42)
[2021-06-21] MEDS: enoxaparin 60mg/0.6ml syringe SUBCUT SCH ×2 (07:42→20:57)
[2021-06-21] MEDS: docusate sod 100mg capsule PO SCH ×2 (07:43→20:57)
[2021-06-21] MEDS: K and/or MAG REPLACEMENT MC SCH ×2 (08:00→20:00)
--- NOTE | 2021-06-21 12:13 | NUR ---
Per clinical pharmacist Clinimix-E 09/28 out of stock, TPN recommendations have been updated and d/w clinical pharmacist. Pt tolerating TPN for sole source of nutrition at this time as pt remains BiPAP dependent. LB 06/17, with routine bowel care available though held d/t NPO status. Will continue to follow. Recommendations: 1) Continuous TPN per MD using 2:1 Clinimix-E 09/23 with 65 mL/hr goal rate with additional 250 mL 20% intralipids to run at 20.83 mL/hr for 12 hours on Tuesdays and Fridays. In total to provide 1560 mL total volume/day, 78 g AA, 234 g dext (2.80 mg/kg/min dext load), and 1251 average kcal 2) Monitor for scaled weight and adjust nutrition recs as appropriate 3) Prealbumin q Friday/ 4) Daily scaled weights 5) Routine bowel care 6) Advance to regular diet as medically indicated in view of geriatric age and poor PO intake prior to NPO status Addendum: 06/21/21 at [address] Amended: Links added.
[2021-06-21] MEDS: REMDESIVIR INJ 100 MG in normal saline 100ml IV soln 100 ML IV SCH (16:14)
[2021-06-21] MEDS ORDERED: VANCOMYCIN LEVEL IV ONE (16:30)
[2021-06-21] MEDS: cefepime 2g/NS 100ml ADVANTAGE 100 ML IV SCH (20:57)
[2021-06-21] MEDS: insulin glargine (Lantus) pen - multi-dose SQ SCH (21:00)
[2021-06-22] VITALS (24 sets, daily range): BP systolic 109–189; BP diastolic 52–79
[2021-06-22] MEDS: hydrALAZINE 20mg/ml inj. IV PRN (00:56)
[2021-06-22] MEDS: methylPREDNISolone sod succ 125mg/2ml vial IV SCH ×3 (00:56→16:23)
[2021-06-22] MEDS: LORazepam 2 mg/ml vial IV PRN ×4 (01:16→21:38)
[2021-06-22] MEDS: insulin regular, human U-100 3ml vial - multi-dose SQ SCH ×4 (04:04→20:47)
[2021-06-22 04:24] LABS: BASOPHILS % (AUTO) 0.1 % (0-1); EOSINOPHILS % (AUTO) 0 % (0-6); HEMATOCRIT 38.4 % (35.0-45.0); HEMOGLOBIN 12.1 g/dl (12.0-16.0); LYMPHOCYTES # (AUTO) 0.6 X10'3 (1.1-4.8); LYMPHOCYTES % (AUTO) 1.9 % (21-51); MEAN CORPUSCULAR HGB CONC 31.6 g/dL (33.0-36.5); MEAN CORPUSCULAR VOLUME 88.6 FL (78-98); MEAN PLATELET VOLUME 9.1 FL (7.4-10.4); MONOCYTES # (AUTO) 1.2 X10'3 (0-0.9); MONOCYTES % (AUTO) 3.8 % (2-12); NEUTROPHILS # (AUTO) 28.6 X10'3 (1.8-7.7); NEUTROPHILS % (AUTO) 94.2 % (42-75); PLATELET COUNT 366 X10'3 (140-440); RED BLOOD COUNT 4.33 X10'6 (4.20-5.60); RED CELL DISTRIBUTION WIDTH 16.3 % (11.5-14.5)
[2021-06-22 04:27] LABS: WHITE BLOOD COUNT 30.4 X10'3 (4.5-11.0)
[2021-06-22 04:36] LABS: D-DIMER 2.95 MG/L FEU (0-0.50)
[2021-06-22 04:46] LABS: ALANINE AMINOTRANSFERASE 20 U/L (12-78); ALBUMIN 1.9 G/DL (3.4-5.0); ALBUMIN/GLOBULIN RATIO 0.6 (1.1-1.5); ALKALINE PHOSPHATASE 106 IU/L (46-116); ANION GAP 8 (8-16); ASPARTATE AMINO TRANSFERASE 21 U/L (10-37); BILIRUBIN,TOTAL 0.4 MG/DL (0.1-1.0); BLOOD UREA NITROGEN 31 MG/DL (7-18); BUN/CREATININE RATIO 53.4 (6.6-38.0); C-REACTIVE PROTEIN 4.46 MG/DL (0.0-0.5); CALCIUM 8.5 MG/DL (8.5-10.1); CHLORIDE 104 MMOL/L (99-107); CREATININE 0.58 MG/DL (0.40-0.90); GLUCOSE 288 MG/DL (70-104); LACTATE DEHYDROGENASE 616 U/L (81-234); PHOSPHORUS 2.6 MG/DL (2.3-4.5); POTASSIUM 3.6 MMOL/L (3.5-5.1); SODIUM 138 MMOL/L (135-145); TOTAL PROTEIN 5.2 G/DL (6.4-8.2); eGFR > 90 ML/MIN
[2021-06-22 04:56] LABS: BURR CELLS 2+; ELLIPTOCYTES 1+; PLATELET ESTIMATE NORMAL; TOTAL CELLS COUNTED 100
[2021-06-22 04:57] LABS: LARGE PLATELETS FEW
[2021-06-22] MEDS: cefepime 2g/NS 100ml ADVANTAGE 100 ML IV SCH ×2 (07:26→20:57)
[2021-06-22] MEDS: pantoprazole 40MG/NS 100ML BAG 100 ML IV SCH (07:27)
[2021-06-22] MEDS: MVI, adult No.4 with vit. K 10 ML in dextrose 5% water 500ml 500 ML IV SCH ×2 (07:27)
[2021-06-22] MEDS: enoxaparin 60mg/0.6ml syringe SUBCUT SCH ×2 (07:28→20:58)
[2021-06-22] MEDS: fat emulsion IV bag 250 ML IV SCH (07:28)
[2021-06-22] MEDS: dexmedetomidine/D5W 100mL 100 ML IV SCH ×4 (07:29→21:01)
[2021-06-22] MEDS: docusate sod 100mg capsule PO SCH ×2 (08:00→20:00)
[2021-06-22] MEDS: K and/or MAG REPLACEMENT MC SCH ×2 (08:00→20:00)
[2021-06-22] MEDS: ZINC/COPPER/MANGANESE/SELENIUM 0.5 ML, chromic chloride inj. 5 MCG in AA 5%/cal/electro... IV SCH (12:07)
[2021-06-22] MEDS ORDERED: normal saline 500ml IV soln 500 ML IV ONE (16:40)
[2021-06-22] MEDS: insulin glargine (Lantus) pen - multi-dose SQ SCH (20:51)
[2021-06-23] VITALS (24 sets, daily range): BP systolic 106–157; BP diastolic 60–78
[2021-06-23] MEDS: methylPREDNISolone sod succ 125mg/2ml vial IV SCH ×4 (00:25→23:22)
[2021-06-23] MEDS: insulin regular, human U-100 3ml vial - multi-dose SQ SCH ×4 (02:59→20:30)
[2021-06-23] MEDS: ZINC/COPPER/MANGANESE/SELENIUM 0.5 ML, chromic chloride inj. 5 MCG in AA 5%/cal/electro... IV SCH ×2 (03:22→17:31)
[2021-06-23 04:02] LABS: BASOPHILS % (AUTO) 0.1 % (0-1); EOSINOPHILS % (AUTO) 0 % (0-6); HEMATOCRIT 37.3 % (35.0-45.0); HEMOGLOBIN 11.8 g/dl (12.0-16.0); LYMPHOCYTES # (AUTO) 0.5 X10'3 (1.1-4.8); LYMPHOCYTES % (AUTO) 1.2 % (21-51); MEAN CORPUSCULAR HGB CONC 31.7 g/dL (33.0-36.5); MEAN CORPUSCULAR VOLUME 88.4 FL (78-98); MONOCYTES # (AUTO) 1.7 X10'3 (0-0.9); MONOCYTES % (AUTO) 4.3 % (2-12); NEUTROPHILS # (AUTO) 37.5 X10'3 (1.8-7.7); NEUTROPHILS % (AUTO) 94.4 % (42-75); PLATELET COUNT 328 X10'3 (140-440); RED BLOOD COUNT 4.22 X10'6 (4.20-5.60); RED CELL DISTRIBUTION WIDTH 16.1 % (11.5-14.5)
[2021-06-23 04:17] LABS: WHITE BLOOD COUNT 39.7 X10'3 (4.5-11.0)
[2021-06-23 04:30] LABS: ALANINE AMINOTRANSFERASE 18 U/L (12-78); ALBUMIN 1.9 G/DL (3.4-5.0); ALBUMIN/GLOBULIN RATIO 0.5 (1.1-1.5); ALKALINE PHOSPHATASE 103 IU/L (46-116); ANION GAP 8 (8-16); ASPARTATE AMINO TRANSFERASE 17 U/L (10-37); BILIRUBIN,TOTAL 0.3 MG/DL (0.1-1.0); BLOOD UREA NITROGEN 39 MG/DL (7-18); BUN/CREATININE RATIO 53.4 (6.6-38.0); C-REACTIVE PROTEIN 3.05 MG/DL (0.0-0.5); CALCIUM 8.8 MG/DL (8.5-10.1); CHLORIDE 105 MMOL/L (99-107); CREATININE 0.73 MG/DL (0.40-0.90); GLUCOSE 146 MG/DL (70-104); LACTATE DEHYDROGENASE 550 U/L (81-234); PHOSPHORUS 3.9 MG/DL (2.3-4.5); POTASSIUM 4.4 MMOL/L (3.5-5.1); SODIUM 138 MMOL/L (135-145); TOTAL CARBON DIOXIDE 25.5 MMOL/L (24-32); TOTAL PROTEIN 5.4 G/DL (6.4-8.2); eGFR 77 ML/MIN
--- NOTE | 2021-06-23 05:00 | NUR ---
Critical WBC reported to Dr. Goel.
[2021-06-23 05:05] LABS: ANISOCYTOSIS 1+; PLATELET ESTIMATE NORMAL; TOTAL CELLS COUNTED 100
[2021-06-23 05:06] LABS: BURR CELLS 2+; ELLIPTOCYTES FEW; LARGE PLATELETS FEW
[2021-06-23] MEDS: dexmedetomidine/D5W 100mL 100 ML IV SCH ×4 (05:57→20:19)
[2021-06-23] MEDS: micafungin inj 100 MG in normal saline 100ml IV soln 100 ML IV SCH (08:00)
[2021-06-23] MEDS: docusate sod 100mg capsule PO SCH ×2 (08:00→20:00)
[2021-06-23] MEDS: K and/or MAG REPLACEMENT MC SCH ×2 (08:00→20:00)
[2021-06-23] MEDS: CEFEPIME 2gm in D5W 50mL 50 ML IV SCH ×2 (09:37→20:13)
[2021-06-23] MEDS: enoxaparin 60mg/0.6ml syringe SUBCUT SCH ×2 (09:38→20:12)
[2021-06-23] MEDS: pantoprazole 40MG/NS 100ML BAG 100 ML IV SCH (09:39)
[2021-06-23 12:03] LABS: ABG HCO3 22.8 mmol/L (22.0-26.0); ABG OXYGEN SATURATION 95.5 % (94-97); ABG PCO2 (T) 59.7 mmHg (32.0-45.0); ABG PO2 (T) 86.8 mmHg (75.0-100.0); ALLEN'S TEST POSITIVE; FCOHb 0.3 % (0.0-3.9); FMetHb 0.5 % (0.0-1.5); FO2Hb 94.7 % (94-97); RESPIRATORY RATE 10 b/min; TIDAL VOLUME 470 mL; TOTAL HEMOGLOBIN 13.2 G/dl (12.0-16.0)
--- NOTE | 2021-06-23 18:44 | NUR ---
Problems reprioritized. Patient report given, questions answered & plan of care reviewed with Virginia. Lines traced
[2021-06-23] MEDS: insulin glargine (Lantus) pen - multi-dose SQ SCH (20:31)
[2021-06-23] MEDS ORDERED: NORepinephrine 8mg/ 250ml NS 250 ML IV SCH (21:50)
[2021-06-24] VITALS (24 sets, daily range): BP systolic 99–182; BP diastolic 56–83
[2021-06-24] MEDS: dexmedetomidine/D5W 100mL 100 ML IV SCH ×5 (00:33→21:43)
[2021-06-24] MEDS: insulin regular, human U-100 3ml vial - multi-dose SQ SCH ×4 (02:30→20:11)
[2021-06-24 02:45] LABS: BASOPHILS # (AUTO) 0.1 X10'3 (0-0.2); BASOPHILS % (AUTO) 0.4 % (0-1); EOSINOPHILS % (AUTO) 0 % (0-6); HEMATOCRIT 33.7 % (35.0-45.0); HEMOGLOBIN 10.3 g/dl (12.0-16.0); LYMPHOCYTES # (AUTO) 0.6 X10'3 (1.1-4.8); LYMPHOCYTES % (AUTO) 2.3 % (21-51); MEAN CORPUSCULAR HEMOGLOBIN 28.1 PG (27.0-31.0); MEAN CORPUSCULAR HGB CONC 30.7 g/dL (33.0-36.5); MEAN CORPUSCULAR VOLUME 91.4 FL (78-98); MEAN PLATELET VOLUME 8.5 FL (7.4-10.4); MONOCYTES # (AUTO) 1.4 X10'3 (0-0.9); MONOCYTES % (AUTO) 4.9 % (2-12); NEUTROPHILS # (AUTO) 25.6 X10'3 (1.8-7.7); NEUTROPHILS % (AUTO) 92.4 % (42-75); PLATELET COUNT 242 X10'3 (140-440); RED BLOOD COUNT 3.68 X10'6 (4.20-5.60); RED CELL DISTRIBUTION WIDTH 16.7 % (11.5-14.5)
[2021-06-24 02:52] LABS: WHITE BLOOD COUNT 27.8 X10'3 (4.5-11.0)
[2021-06-24 03:22] LABS: TOTAL CELLS COUNTED 100
[2021-06-24 03:23] LABS: ANISOCYTOSIS 1+; BURR CELLS 2+; ELLIPTOCYTES FEW; LARGE PLATELETS FEW; PLATELET ESTIMATE NORMAL
[2021-06-24 04:44] LABS: ALANINE AMINOTRANSFERASE 16 U/L (12-78); ALBUMIN 1.7 G/DL (3.4-5.0); ALBUMIN/GLOBULIN RATIO 0.5 (1.1-1.5); ALKALINE PHOSPHATASE 94 IU/L (46-116); ANION GAP 7 (8-16); ASPARTATE AMINO TRANSFERASE 16 U/L (10-37); BILIRUBIN,TOTAL 0.2 MG/DL (0.1-1.0); BLOOD UREA NITROGEN 51 MG/DL (7-18); BUN/CREATININE RATIO 71.8 (6.6-38.0); CALCIUM 8.5 MG/DL (8.5-10.1); CHLORIDE 105 MMOL/L (99-107); CREATININE 0.71 MG/DL (0.40-0.90); GLUCOSE 131 MG/DL (70-104); MAGNESIUM 2.1 MG/DL (1.5-2.4); POTASSIUM 4.8 MMOL/L (3.5-5.1); SODIUM 138 MMOL/L (135-145); TOTAL CARBON DIOXIDE 26.5 MMOL/L (24-32); eGFR 79 ML/MIN
[2021-06-24] MEDS: K and/or MAG REPLACEMENT MC SCH ×2 (07:49→20:00)
[2021-06-24] MEDS: docusate sod 100mg capsule PO SCH ×2 (08:00→20:00)
[2021-06-24] MEDS: pantoprazole 40MG/NS 100ML BAG 100 ML IV SCH (09:15)
[2021-06-24] MEDS: methylPREDNISolone sod succ 125mg/2ml vial IV SCH ×3 (09:15→23:31)
[2021-06-24] MEDS: CEFEPIME 2gm in D5W 50mL 50 ML IV SCH ×2 (09:22→19:48)
[2021-06-24] MEDS: ZINC/COPPER/MANGANESE/SELENIUM 0.5 ML, chromic chloride inj. 5 MCG in AA 5%/cal/electro... IV SCH (09:22)
[2021-06-24] MEDS: micafungin inj 100 MG in normal saline 100ml IV soln 100 ML IV SCH (09:23)
[2021-06-24] MEDS: enoxaparin 60mg/0.6ml syringe SUBCUT SCH ×2 (09:24→19:49)
[2021-06-24] MEDS: hydrALAZINE 20mg/ml inj. IV PRN (12:55)
[2021-06-24] MEDS: LORazepam 2 mg/ml vial IV PRN ×2 (13:20→19:10)
--- NOTE | 2021-06-24 13:48 | NUR ---
spoke to Dr. Felder regarding patient's elevated HR and blood pressure. Per MD no new orders at this time, keep a close eye on the patient.
[2021-06-24 14:27] LABS: D-DIMER 3.57 MG/L FEU (0-0.50)
[2021-06-24] MEDS: insulin glargine (Lantus) pen - multi-dose SQ SCH (20:13)
[2021-06-25] VITALS (24 sets, daily range): BP systolic 101–179; BP diastolic 51–87
[2021-06-25] MEDS: ZINC/COPPER/MANGANESE/SELENIUM 0.5 ML, chromic chloride inj. 5 MCG in AA 5%/cal/electro... IV SCH ×2 (01:04→15:37)
[2021-06-25] MEDS ORDERED: acetaminophen 120MG suppository, rectal RC PRN (01:25)
[2021-06-25] MEDS ORDERED: acetaminophen 325mg rectal suppository RC PRN (01:56)
[2021-06-25] MEDS: insulin regular, human U-100 3ml vial - multi-dose SQ SCH ×4 (02:37→20:30)
[2021-06-25 03:03] LABS: BASOPHILS # (AUTO) 0.1 X10'3 (0-0.2); BASOPHILS % (AUTO) 0.2 % (0-1); EOSINOPHILS % (AUTO) 0 % (0-6); HEMATOCRIT 36.8 % (35.0-45.0); HEMOGLOBIN 11.6 g/dl (12.0-16.0); LYMPHOCYTES # (AUTO) 0.7 X10'3 (1.1-4.8); LYMPHOCYTES % (AUTO) 2.2 % (21-51); MEAN CORPUSCULAR HEMOGLOBIN 28.1 PG (27.0-31.0); MEAN CORPUSCULAR HGB CONC 31.7 g/dL (33.0-36.5); MEAN CORPUSCULAR VOLUME 88.9 FL (78-98); MEAN PLATELET VOLUME 8.6 FL (7.4-10.4); MONOCYTES # (AUTO) 1.2 X10'3 (0-0.9); MONOCYTES % (AUTO) 3.9 % (2-12); NEUTROPHILS # (AUTO) 29.9 X10'3 (1.8-7.7); NEUTROPHILS % (AUTO) 93.7 % (42-75); PLATELET COUNT 274 X10'3 (140-440); RED BLOOD COUNT 4.14 X10'6 (4.20-5.60); RED CELL DISTRIBUTION WIDTH 16.6 % (11.5-14.5)
[2021-06-25 03:08] LABS: WHITE BLOOD COUNT 31.9 X10'3 (4.5-11.0)
[2021-06-25] MEDS: dexmedetomidine/D5W 100mL 100 ML IV SCH ×5 (03:17→22:56)
[2021-06-25 03:31] LABS: ALANINE AMINOTRANSFERASE 20 U/L (12-78); ALBUMIN 1.9 G/DL (3.4-5.0); ALBUMIN/GLOBULIN RATIO 0.5 (1.1-1.5); ALKALINE PHOSPHATASE 100 IU/L (46-116); ANION GAP 6 (8-16); ASPARTATE AMINO TRANSFERASE 22 U/L (10-37); BILIRUBIN,TOTAL 0.3 MG/DL (0.1-1.0); BLOOD UREA NITROGEN 54 MG/DL (7-18); BUN/CREATININE RATIO 70.1 (6.6-38.0); C-REACTIVE PROTEIN 0.91 MG/DL (0.0-0.5); CALCIUM 8.6 MG/DL (8.5-10.1); CHLORIDE 103 MMOL/L (99-107); CREATININE 0.77 MG/DL (0.40-0.90); GLUCOSE 188 MG/DL (70-104); MAGNESIUM 2.3 MG/DL (1.5-2.4); PHOSPHORUS 3.3 MG/DL (2.3-4.5); POTASSIUM 4.8 MMOL/L (3.5-5.1); PREALBUMIN 20.2 MG/DL (19-36); SODIUM 134 MMOL/L (135-145); TOTAL CARBON DIOXIDE 25.5 MMOL/L (24-32); TOTAL PROTEIN 5.5 G/DL (6.4-8.2); TRIGLYCERIDES 109 MG/DL (20-135); eGFR 72 ML/MIN
[2021-06-25 04:28] LABS: ANISOCYTOSIS 1+; BURR CELLS 1+; ELLIPTOCYTES FEW; LARGE PLATELETS FEW; PLATELET ESTIMATE NORMAL; TOTAL CELLS COUNTED 100
--- NOTE | 2021-06-25 05:00 | NUR ---
Notified Dr. Delarosa of critical WBC count of 31.9. Will continue to monitor.
[2021-06-25] MEDS: hydrALAZINE 20mg/ml inj. IV PRN (06:27)
--- NOTE | 2021-06-25 06:41 | NUR ---
Problems reprioritized. Patient report given, questions answered & plan of care reviewed with GRACIE Menon.
[2021-06-25] MEDS: pantoprazole 40MG/NS 100ML BAG 100 ML IV SCH (07:59)
[2021-06-25] MEDS: methylPREDNISolone sod succ 125mg/2ml vial IV SCH ×2 (08:00→15:36)
[2021-06-25] MEDS: docusate sod 100mg capsule PO SCH ×2 (08:00→19:51)
[2021-06-25] MEDS: micafungin inj 100 MG in normal saline 100ml IV soln 100 ML IV SCH (08:01)
[2021-06-25] MEDS: enoxaparin 60mg/0.6ml syringe SUBCUT SCH ×2 (08:03→19:50)
[2021-06-25] MEDS: K and/or MAG REPLACEMENT MC SCH ×2 (08:08→19:09)
[2021-06-25] MEDS: CEFEPIME 2gm in D5W 50mL 50 ML IV SCH (08:53)
[2021-06-25] MEDS ORDERED: ziprasidone IM 20mg inj **IM only IM STA (09:35)
[2021-06-25 12:22] LABS: D-DIMER 2.86 MG/L FEU (0-0.50)
--- NOTE | 2021-06-25 13:08 | NUR ---
Woody Consult: Woody 11 w/ skin intact per EMR. Pt remains BIPAP/CPAP dependent tolerating TPN at goal. LBM 2/6 though last PO that time as well unable to take routine colace given NPO status. Will continue to monitor for PN tolerance and further nutrition support needs this admit. Recommendations: 1) Continuous TPN per MD using 2:1 Clinimix-E 09/23 with 65 mL/hr goal rate with additional 250 mL 20% intralipids to run at 20.83 mL/hr for 12 hours on Tuesdays and Fridays. In total to provide 1560 mL total volume/day, 78 g AA, 234 g dext (2.80 mg/kg/min dext load), and 1251 average kcal 2) Monitor for scaled weight and adjust nutrition recs as appropriate 3) TG/PALB q Friday/; Daily scaled weights 4) Routine bowel care 5) Consider EN as medically indicated given respiratory status Addendum: 06/25/21 at [address] Amended: Links added.
[2021-06-25] MEDS: insulin glargine (Lantus) pen - multi-dose SQ SCH (20:31)
--- NOTE | 2021-06-25 22:00 | NUR ---
Called Dr. Strange to notify him that patient was in distress. Pt was moaning and reaching for her Bipap mask. In addition pt was agitated and screaming through the Bipap mask. Patients current vital signs are Heart Rate: 100, SpO2: 96, Respiratory Rate:24, Bp: 169/57. Patient Bipap settings are IPAP:22, EPAP:10, FiO2: 80%. Patient on Precedex: 1.4 and TPN at 65mL/hr which is goal. Dr juan ramon Castanon and Fentanyl. Will administer as prescribed.
[2021-06-25] MEDS ORDERED: ziprasidone IM 20mg inj **IM only IM ONE (22:10)
[2021-06-25] MEDS ORDERED: morphine 2 MG/ML inj. syringe IV PRN (22:10)
[2021-06-25] MEDS: methylPREDNISolone sod succ/PF 40mg inj. IV SCH (23:48)
[2021-06-26] VITALS (24 sets, daily range): BP systolic 87–185; BP diastolic 48–92
--- NOTE | 2021-06-26 | NUR ---
Called Dr. Mancini, patient's heart rate reached 150-160's and sustained it for about [address] Mancini ordered a cardizem drip and cardizem push IV. I administered the cardizem IV push and current vital signs are: Heart Rate:96, SpO2:92, respiratory rate: 13 and blood pressure of 87/52. Waiting for cardizem drip will continue to moniter.
[2021-06-26] MEDS ORDERED: diltiazem 5mg/ml 5ml inj. IV ONE (00:30)
[2021-06-26] MEDS: insulin regular, human U-100 3ml vial - multi-dose SQ SCH ×4 (02:10→21:04)
[2021-06-26 02:48] LABS: BASOPHILS % (AUTO) 0.1 % (0-1); EOSINOPHILS % (AUTO) 0 % (0-6); HEMATOCRIT 33.1 % (35.0-45.0); HEMOGLOBIN 10.3 g/dl (12.0-16.0); LYMPHOCYTES # (AUTO) 0.4 X10'3 (1.1-4.8); LYMPHOCYTES % (AUTO) 1.9 % (21-51); MEAN CORPUSCULAR HGB CONC 31.1 g/dL (33.0-36.5); MEAN CORPUSCULAR VOLUME 89.8 FL (78-98); MEAN PLATELET VOLUME 8.6 FL (7.4-10.4); MONOCYTES % (AUTO) 4.2 % (2-12); NEUTROPHILS # (AUTO) 21.9 X10'3 (1.8-7.7); NEUTROPHILS % (AUTO) 93.8 % (42-75); PLATELET COUNT 200 X10'3 (140-440); RED BLOOD COUNT 3.69 X10'6 (4.20-5.60); RED CELL DISTRIBUTION WIDTH 16.6 % (11.5-14.5); WHITE BLOOD COUNT 23.3 X10'3 (4.5-11.0)
[2021-06-26 02:58] LABS: D-DIMER 2.13 MG/L FEU (0-0.50)
[2021-06-26 03:14] LABS: ALANINE AMINOTRANSFERASE 19 U/L (12-78); ALBUMIN 1.6 G/DL (3.4-5.0); ALBUMIN/GLOBULIN RATIO 0.5 (1.1-1.5); ANION GAP 0 (8-16); ASPARTATE AMINO TRANSFERASE 19 U/L (10-37); BILIRUBIN,TOTAL 0.3 MG/DL (0.1-1.0); BLOOD UREA NITROGEN 60 MG/DL (7-18); BUN/CREATININE RATIO 93.8 (6.6-38.0); C-REACTIVE PROTEIN 0.47 MG/DL (0.0-0.5); CALCIUM 8.5 MG/DL (8.5-10.1); CHLORIDE 107 MMOL/L (99-107); CREATININE 0.64 MG/DL (0.40-0.90); GLUCOSE 199 MG/DL (70-104); MAGNESIUM 2.5 MG/DL (1.5-2.4); PHOSPHORUS 4.6 MG/DL (2.3-4.5); POTASSIUM 4.9 MMOL/L (3.5-5.1); SODIUM 137 MMOL/L (135-145); TOTAL CARBON DIOXIDE 30.1 MMOL/L (24-32); TOTAL PROTEIN 4.8 G/DL (6.4-8.2); eGFR 89 ML/MIN
[2021-06-26] MEDS: dexmedetomidine/D5W 100mL 100 ML IV SCH ×4 (03:45→22:59)
[2021-06-26] MEDS: fentaNYL/PF 50MCG/1 ML 2ML syringe IV PRN ×2 (05:50→18:49)
[2021-06-26] MEDS: diltiazem-NS 100mg/100ml 100 ML IV SCH ×2 (06:18→20:25)
[2021-06-26] MEDS: docusate sod 100mg capsule PO SCH (08:00)
[2021-06-26] MEDS ORDERED: CEFEPIME 2gm in D5W 50mL 50 ML IV SCH ×2 (08:00→21:40)
[2021-06-26] MEDS: K and/or MAG REPLACEMENT MC SCH ×2 (08:00→20:00)
[2021-06-26] MEDS: methylPREDNISolone sod succ/PF 40mg inj. IV SCH ×2 (08:08→15:41)
[2021-06-26] MEDS: MVI, adult No.4 with vit. K 10 ML in dextrose 5% water 500ml 500 ML IV SCH ×2 (08:08)
[2021-06-26] MEDS: fat emulsion IV bag 250 ML IV SCH (08:09)
[2021-06-26] MEDS: enoxaparin 60mg/0.6ml syringe SUBCUT SCH ×2 (08:09→20:48)
[2021-06-26] MEDS: ZINC/COPPER/MANGANESE/SELENIUM 0.5 ML, chromic chloride inj. 5 MCG in AA 5%/cal/electro... IV SCH ×2 (08:09→23:50)
[2021-06-26] MEDS: pantoprazole 40MG/NS 100ML BAG 100 ML IV SCH (08:10)
[2021-06-26] MEDS: micafungin inj 100 MG in normal saline 100ml IV soln 100 ML IV SCH (08:10)
--- NOTE | 2021-06-26 13:39 | NUR ---
Patient in room CICU 2014. I have received report from Virginia BOWMAN and had the opportunity to ask questions and assume patient care.
--- NOTE | 2021-06-26 18:00 | NUR ---
Problems reprioritized. Patient report given, questions answered & plan of care reviewed with Jhonathan BOWMAN.
[2021-06-26] MEDS: insulin glargine (Lantus) pen - multi-dose SQ SCH (21:06)
[2021-06-26] MEDS: LORazepam 2 mg/ml vial IV PRN (22:49)
[2021-06-26] MEDS: CEFEPIME 2gm in D5W 50mL 50 ML IV SCH (22:50)
[2021-06-27] VITALS (23 sets, daily range): BP systolic 101–169; BP diastolic 46–106
[2021-06-27] MEDS: methylPREDNISolone sod succ/PF 40mg inj. IV SCH ×3 (01:37→16:50)
[2021-06-27] MEDS: insulin regular, human U-100 3ml vial - multi-dose SQ SCH ×3 (02:27→14:50)
[2021-06-27 03:12] LABS: BASOPHILS # (AUTO) 0.1 X10'3 (0-0.2); BASOPHILS % (AUTO) 0.2 % (0-1); EOSINOPHILS % (AUTO) 0 % (0-6); HEMATOCRIT 30.1 % (35.0-45.0); HEMOGLOBIN 9.6 g/dl (12.0-16.0); LYMPHOCYTES # (AUTO) 0.6 X10'3 (1.1-4.8); LYMPHOCYTES % (AUTO) 2.1 % (21-51); MEAN CORPUSCULAR HEMOGLOBIN 28.2 PG (27.0-31.0); MEAN CORPUSCULAR HGB CONC 32.1 g/dL (33.0-36.5); MEAN CORPUSCULAR VOLUME 88.1 FL (78-98); MEAN PLATELET VOLUME 8.7 FL (7.4-10.4); MONOCYTES # (AUTO) 1.1 X10'3 (0-0.9); MONOCYTES % (AUTO) 3.6 % (2-12); NEUTROPHILS # (AUTO) 27.7 X10'3 (1.8-7.7); NEUTROPHILS % (AUTO) 94.1 % (42-75); PLATELET COUNT 174 X10'3 (140-440); RED BLOOD COUNT 3.42 X10'6 (4.20-5.60); RED CELL DISTRIBUTION WIDTH 16.4 % (11.5-14.5)
[2021-06-27 03:19] LABS: WHITE BLOOD COUNT 29.4 X10'3 (4.5-11.0)
[2021-06-27 03:32] LABS: D-DIMER 3.23 MG/L FEU (0-0.50)
[2021-06-27 03:39] LABS: ALANINE AMINOTRANSFERASE 21 U/L (12-78); ALBUMIN 1.2 G/DL (3.4-5.0); ALBUMIN/GLOBULIN RATIO 0.3 (1.1-1.5); ANION GAP 3 (8-16); ASPARTATE AMINO TRANSFERASE 24 U/L (10-37); BILIRUBIN,TOTAL 0.3 MG/DL (0.1-1.0); BLOOD UREA NITROGEN 55 MG/DL (7-18); BUN/CREATININE RATIO 88.7 (6.6-38.0); C-REACTIVE PROTEIN 0.28 MG/DL (0.0-0.5); CALCIUM 8.2 MG/DL (8.5-10.1); CHLORIDE 107 MMOL/L (99-107); CREATININE 0.62 MG/DL (0.40-0.90); GLUCOSE 81 MG/DL (70-104); POTASSIUM 4.5 MMOL/L (3.5-5.1); SODIUM 138 MMOL/L (135-145); TOTAL CARBON DIOXIDE 28.5 MMOL/L (24-32); TOTAL PROTEIN 4.7 G/DL (6.4-8.2); eGFR > 90 ML/MIN
[2021-06-27] MEDS: dexmedetomidine/D5W 100mL 100 ML IV SCH ×4 (04:03→17:45)
[2021-06-27 05:11] LABS: PLATELET ESTIMATE NORMAL; TOTAL CELLS COUNTED 100
[2021-06-27 05:12] LABS: ANISOCYTOSIS 1+; LARGE PLATELETS FEW
[2021-06-27 05:13] LABS: BURR CELLS FEW; ELLIPTOCYTES FEW
[2021-06-27] MEDS: K and/or MAG REPLACEMENT MC SCH ×2 (08:00→20:00)
[2021-06-27] MEDS ORDERED: insulin regular, human U-100 3ml vial - multi-dose SQ SCH (08:20)
[2021-06-27] MEDS ORDERED: dextrose ORAL solution 15 GM/59 ML bottle PO PRN ×2 (08:20)
[2021-06-27] MEDS ORDERED: dextrose 50%-water 50ml dispensing syringe IV PRN ×2 (08:20)
[2021-06-27] MEDS ORDERED: glucagon, human recombinant 1mg kit SUBCUT PRN (08:20)
[2021-06-27] MEDS: enoxaparin 60mg/0.6ml syringe SUBCUT SCH ×2 (08:24→20:00)
[2021-06-27] MEDS: CEFEPIME 2gm in D5W 50mL 50 ML IV SCH ×2 (08:24→16:51)
[2021-06-27] MEDS: pantoprazole 40MG/NS 100ML BAG 100 ML IV SCH (08:24)
[2021-06-27] MEDS: micafungin inj 100 MG in normal saline 100ml IV soln 100 ML IV SCH (08:25)
[2021-06-27] MEDS: hydrALAZINE 20mg/ml inj. IV PRN (09:30)
[2021-06-27] MEDS: LORazepam 2 mg/ml vial IV PRN ×2 (09:57→18:35)
[2021-06-27] MEDS: ZINC/COPPER/MANGANESE/SELENIUM 0.5 ML, chromic chloride inj. 5 MCG in AA 5%/cal/electro... IV SCH (13:57)
[2021-06-27] MEDS: fentaNYL/PF 50MCG/1 ML 2ML syringe IV PRN ×2 (18:38→21:37)
[2021-06-27] MEDS: insulin glargine (Lantus) pen - multi-dose SQ SCH (21:00)
[2021-06-28] VITALS (22 sets, daily range): BP systolic 103–168; BP diastolic 43–81
[2021-06-28] MEDS: insulin regular, human U-100 3ml vial - multi-dose SQ SCH ×3 (05:18→13:58)
[2021-06-28 06:18] LABS: D-DIMER 1.98 MG/L FEU (0-0.50)
[2021-06-28] MEDS: LORazepam 2 mg/ml vial IV PRN ×2 (06:24→15:52)
[2021-06-28 06:40] LABS: ALANINE AMINOTRANSFERASE 26 U/L (12-78); ALBUMIN 1.9 G/DL (3.4-5.0); ALBUMIN/GLOBULIN RATIO 0.6 (1.1-1.5); ALKALINE PHOSPHATASE 103 IU/L (46-116); ANION GAP 4 (8-16); ASPARTATE AMINO TRANSFERASE 30 U/L (10-37); BILIRUBIN,TOTAL 0.4 MG/DL (0.1-1.0); BLOOD UREA NITROGEN 64 MG/DL (7-18); BUN/CREATININE RATIO 104.9 (6.6-38.0); C-REACTIVE PROTEIN 0.17 MG/DL (0.0-0.5); CALCIUM 8.7 MG/DL (8.5-10.1); CHLORIDE 103 MMOL/L (99-107); CREATININE 0.61 MG/DL (0.40-0.90); GLUCOSE 227 MG/DL (70-104); MAGNESIUM 2.5 MG/DL (1.5-2.4); PHOSPHORUS 4.1 MG/DL (2.3-4.5); PREALBUMIN 31.8 MG/DL (19-36); SODIUM 134 MMOL/L (135-145); TOTAL PROTEIN 5.2 G/DL (6.4-8.2); TRIGLYCERIDES 147 MG/DL (20-135); eGFR > 90 ML/MIN
[2021-06-28 06:41] LABS: POTASSIUM 5.4 MMOL/L (3.5-5.1)
[2021-06-28] MEDS: dexmedetomidine/D5W 100mL 100 ML IV SCH ×4 (07:28→22:18)
[2021-06-28] MEDS: K and/or MAG REPLACEMENT MC SCH ×2 (08:00→20:00)
[2021-06-28] MEDS: pantoprazole 40MG/NS 100ML BAG 100 ML IV SCH (08:10)
[2021-06-28] MEDS: CEFEPIME 2gm in D5W 50mL 50 ML IV SCH ×2 (08:10)
[2021-06-28] MEDS: methylPREDNISolone sod succ/PF 40mg inj. IV SCH ×3 (08:10→16:00)
[2021-06-28] MEDS: enoxaparin 60mg/0.6ml syringe SUBCUT SCH ×2 (08:10→20:00)
[2021-06-28] MEDS: micafungin inj 100 MG in normal saline 100ml IV soln 100 ML IV SCH (08:11)
[2021-06-28] MEDS ORDERED: multivitamins, therapeutics tablet PO SCH (11:43)
--- NOTE | 2021-06-28 12:31 | NUR ---
Reassessment: Pt continues on BiPAP and receiving TPN for sole source of nutrition. Noted a scaled weight was obtained, TPN recommendations have been adjusted appropriately. Noted pt with a shift in electrolytes today though no prior changes to nutrition intake, MD notified. LBM 06/17, not receiving any bowel care d/t NPO status, MD notified. Will continue to follow. Recommendations: 1) Continuous TPN per MD using 2:1 Clinimix-E 09/28 with 75 mL/hr goal rate with additional 250 mL 20% intralipids to run at 20.83 mL/hr for 12 hours on Tuesdays and Fridays. In total to provide 1800 mL total volume/day, 90 g AA, 360 g dext (4.09 mg/kg/min dext load), and 1727 average kcal 2) TG and PALB q Friday/ 3) Daily scaled weights 4) Routine bowel care 5) Consider EN as medically indicated given respiratory status Addendum: 06/28/21 at [address] Amended: Links added.
[2021-06-28] MEDS ORDERED: vancomycin/NS 1 GM ADD-VANTAGE 250 ML IV SCH (13:00)
[2021-06-28] MEDS: zinc sulfate 220mg capsule PO SCH ×2 (13:00→21:00)
[2021-06-28] MEDS ORDERED: VANCOMYCIN 1GM/200ML IVPB 250 ML IV SCH (13:10)
[2021-06-28] MEDS ORDERED: VANCOMYCIN 1GM/200ML IVPB 200 ML IV SCH (13:11)
[2021-06-28] MEDS: ZINC/COPPER/MANGANESE/SELENIUM 0.5 ML, chromic chloride inj. 5 MCG in AA 5%/cal/electro... IV SCH ×2 (20:53→22:18)
[2021-06-28] MEDS: insulin glargine (Lantus) pen - multi-dose SQ SCH (21:00)
[2021-06-28] MEDS: fentaNYL/PF 50MCG/1 ML 2ML syringe IV PRN (22:19)
[2021-06-29] VITALS: BP 167/67
[2021-06-29] MEDS: methylPREDNISolone sod succ/PF 40mg inj. IV SCH
[2021-06-29 01:00] VITALS: BP 134/67
[2021-06-29 04:00] VITALS: BP 194/80
[2021-06-29 05:00] VITALS: BP 165/72
[2021-06-29 06:00] VITALS: BP 158/66
[2021-06-29] MEDS ORDERED: LORazepam 2 mg/ml vial IV PRN (08:45)
[2021-06-29] MEDS ORDERED: morphine 2 MG/ML inj. syringe IV PRN (08:45)
--- NOTE | 2021-06-29 10:41 | NUR ---
Comfort Care Patient originally did not want interventions. Somehow, son became decision maker. Conferenced w son and SO and put patient to CC. Informed per leadership that patient could have visitors for passing. Patient is taken off Precedex and I receive CC orders.
[2021-06-29] MEDS ORDERED: morphine 4 MG/ML inj SYRINge IV PRN (10:45)
[2021-06-29] MEDS ORDERED: LORazepam 2 mg/ml vial IM ONE (11:00)
[2021-06-30] MEDS ORDERED: VANCOMYCIN LEVEL IV ONE (12:30)
== END 2021-06-29 12:00 | DRG 871 ==
LOC: ER 11:22 → ED HOLD 14:42 → ORTHO 4S 15:30 → CICU 2S 06-18 10:10
PROVIDERS: ADMIT Internal Medicine; ATTEND Internal Medicine
PROC: XW033E5 Introduction of Remdesivir Anti-infective into Peripheral Vein, Percutaneous Approach, New Technology Group 5 (ICD-10-PCS; principal; 2021-06-16)
PROC: 5A0935A Assistance with Respiratory Ventilation, Less than 24 Consecutive Hours, High Flow/Velocity Cannula (ICD-10-PCS; 2021-06-17)
PROC: 5A09557 Assistance with Respiratory Ventilation, Greater than 96 Consecutive Hours, Continuous Positive Airway Pressure (ICD-10-PCS; 2021-06-18)
PROC: 02HV33Z Insertion of Infusion Device into Superior Vena Cava, Percutaneous Approach (ICD-10-PCS; 2021-06-18)
PROC: B548ZZA Ultrasonography of Superior Vena Cava, Guidance (ICD-10-PCS; 2021-06-18)
PROC: 02HV33Z Insertion of Infusion Device into Superior Vena Cava, Percutaneous Approach (ICD-10-PCS; 2021-06-28)
PROC: B548ZZA Ultrasonography of Superior Vena Cava, Guidance (ICD-10-PCS; 2021-06-28)
DX: A41.89 Other specified sepsis (principal); U07.1 COVID-19; J12.82 Pneumonia due to coronavirus disease 2019; J80 Acute respiratory distress syndrome; G93.41 Metabolic encephalopathy; E43 Unspecified severe protein-calorie malnutrition; R65.20 Severe sepsis without septic shock; Z66 Do not resuscitate; R34 Anuria and oliguria; I10 Essential (primary) hypertension; K21.9 Gastro-esophageal reflux disease without esophagitis; G89.29 Other chronic pain; R74.02 Elevation of levels of lactic acid dehydrogenase [LDH]; I95.9 Hypotension, unspecified; R68.0 Hypothermia, not associated with low environmental temperature; E78.00 Pure hypercholesterolemia, unspecified; E78.5 Hyperlipidemia, unspecified; Z82.49 Family history of ischemic heart disease and other diseases of the circulatory system; Z88.0 Allergy status to penicillin; Z88.8 Allergy status to other drugs, medicaments and biological substances; Z90.49 Acquired absence of other specified parts of digestive tract; Z90.710 Acquired absence of both cervix and uterus; Z88.5 Allergy status to narcotic agent; Z87.440 Personal history of urinary (tract) infections; Z80.9 Family history of malignant neoplasm, unspecified; Z79.899 Other long term (current) drug therapy; Z79.82 Long term (current) use of aspirin; Z68.34 Body mass index [BMI] 34.0-34.9, adult
CPT/HCPCS: 36415; 36569; 36600; 71045; 76942; 80048; 80053; 81001; 82803; 82948; 83615; 83690; 83735; 83880; 84100; 84134; 84145; 84478; 84484; 85007; 85018; 85025; 85379; 85610; 86140; 87040; 87077; 87081; 87186; 87635; 93005; 93306; 94660; 94760; 94799; 96374; 99285; C9113; C9803; G0378; J0360; J0692; J0780; J1100; J1650; J1815; J1940; J1956; J2060; J2248; J2250; J2405; J2920; J2930; J3010; J3370; J3486; J3490; J7030; J7040; J7060